=== PATIENT | male | born 1940 | race Caucasian/White ===

== ENCOUNTER 2022-04-08 08:43 | Day surgery (SDC) | payer MEDICARE, OTHER, SELFPAY ==
[2022-04-08] VITALS (16 sets, daily range): BP systolic 126–162; BP diastolic 61–90; PULSE 7–69; RESP 12–16; TEMP 36–36.1; O2SAT 93–99; BMI 26.9
[2022-04-08] MEDS: MIDAZOLAM HCL 1 MG/ML inj IVP (10:27)
[2022-04-08] MEDS: fentaNYL 100 MCG/2 ML inj IVP (10:28)
[2022-04-08] MEDS: LACTATED RINGERS 1000 ML 1,000 ML 100 ML IV (10:29)
[2022-04-08] MEDS: CEFAZOLIN 2 GM INJ IVP (10:50)
[2022-04-08] MEDS: SODIUM CHLORIDE IRRIG SOLUTION 3,000 ML, EPINEPHrine 1 MG IRRIGATION (12:03)
--- NOTE | 2022-04-08 12:49 | PM.ORPRC ---
Procedure Note Date of procedure: 04/08/22 Procedure: PREOPERATIVE DIAGNOSES: 1. Left shoulder rotator cuff [id number] upper border subscapularis and supraspinatus/infraspinatus 2. Left shoulder AC degenerative joint disease, severe 3. Left shoulder long head of biceps tendinopathy 4. Left shoulder subacromial impingement syndrome. POSTOPERATIVE DIAGNOSES: 1. Left shoulder rotator cuff [id number] upper border subscapularis and supraspinatus/infraspinatus 2. Left shoulder AC degenerative joint disease, severe 3. Left shoulder long head of biceps tendinopathy, mild 4. Left shoulder degenerative labral fraying and tearing 5. Left shoulder subacromial impingement syndrome. NAME OF OPERATION: 1. Left shoulder arthroscopic rotator cuff repair (upper border subscap x1, supra/infra tearing) 2. Left shoulder arthroscopic distal clavicle excision 3. Left shoulder arthroscopic extensive glenohumeral debridement 4. Left shoulder arthroscopic bursectomy, subacromial decompression/partial acromioplasty. SURGEON: Irvin Rice MD EDUCATION AND TRAINING COORDINATOR: Cole Mayfield PA-C. Of note, a skilled assistant shift supervisor was critical for this case to aide in patient positioning, suture manipulation, arm positioning, instrument positioning, and closure. ANESTHESIA: General plus preoperative supraclavicular block. EBL: 50 mL IMPLANTS: Arthrex 4.75 mm BioComposite SwiveLock suture anchor (x1-subscap); 5.5 mm BioComposite corkscrew suture anchor (x1) and 5.5 mm BioComposite SwiveLock (x1) COMPLICATIONS: None evident INDICATIONS: The patient is a pleasant, 82-year-old male who has experienced left shoulder pain that has been increasing in recent time. Physical exam and imaging were consistent with a rotator cuff tear. Given their findings, as well as the weakness and pain, and inadequate response to nonoperative management, recommendation was made for surgery. 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 As a child he underwent multiple surgeries on bilateral lower extremities subsequently. His upper extremities are very necessary for his daily life. FINDINGS: Exam under anesthesia revealed stable shoulder with excellent range of motion. The diagnostic arthroscopy revealed grade 2 chondromalacia humeral head with some loose chondral flaps. The Subscapularis tendon was torn from its upper border with retraction. The long head of the biceps tendon was torn in a mild manner on the deep surface of the tendon not at the origin but rather proximally 1 cm distal. The superior rotator cuff tendon was found to be torn full-thickness through the supra/infra regions in a longitudinal manner warranting marginal convergence sutures. There is also some partial-thickness deep surface tearing of the supraspinatus more anteriorly warranting corkscrew suture anchor to help reapproximate that tissue. The labrum was degeneratively frayed in the anterior and superior aspects. No loose bodies were identified within the pouch or subscapularis recess. PROCEDURE: Following a thorough discussion of risks, benefits, and alternatives, consent was obtained and the left shoulder was marked. The patient was brought to the operating room and placed supine on the operating table. Induction of anesthesia was completed after preoperative supraclavicular block was administered in preop holding. Appropriate time out was performed identifying proper patient, site, and procedure. 2 g IV Ancef was administered within 1 hour of incision preoperatively. The left upper extremity was prepped and draped in the appropriate sterile fashion using ChloraPrep prep. This was after the patient was positioned in the beach chair with their head in neutral alignment and all bony prominences well padded. The shoulder was insufflated with 20mL of normal saline via an 18g spinal needle from a posterior approach. An 11 blade skin incision allowed a blunt trochar to be inserted and diagnostic arthroscopy to be performed with the findings as noted above. An anterior portal was established with an outside in technique. This allowed the probe to be inserted and confirm the diagnostic arthroscopic findings. The shaver was then inserted and allowed debridement of the anterior and superior labrum as well as the deep surface of the biceps that was partially torn and finally the humeral head chondral loose flaps. The biceps was probed otherwise found to be stable without significant lift off at the origin. Following this, the upper border subscapularis was repaired after debriding the lesser tuberosity with the shaver and [place] cautery. Subscapularis was captured in horizontal mattress fashion with a fiber tape suture. The tails were brought to a single anchor in the lesser tuberosity with excellent reapproximation of the subscap tendon and good excursion/tension. Thereafter, the subacromial space was entered. Here, a complete bursectomy and partial acromioplasty/subacromial decompression was performed with a combination of radiofrequency ablator, the shaver, and a 5.5 mm bur. Additionally, distal clavicle excision was performed with the bur. 8 mm of distal clavicle was resected based on the width of our bur. Further inspection of the supraspinatus and infraspinatus rotator cuff was performed. [This identified the tear as noted above. The margins of the tear were debrided as they had significant fatty infiltration within the tendinous portion. Following this, a 5.5 mm BioComposite corkscrew suture anchor was placed underneath the supraspinatus tendon more anteriorly as there was approximately 50% lift off on the tendon or more. After passing this anchor, the sutures were passed in horizontal mattress fashion (double loaded) and tied down with good security of this anterior supraspinatus. The longitudinal split between the supra and infra warranted marginal convergence sutures. 2 separate suture tapes were passed and tied with good security of this. The more lateral of the tails was then placed into a SwiveLock suture anchor to help again reapproximated to the greater tuberosity. This was all done following gentle decortication of the greater tuberosity and debridement of the unhealthy tendon edges. Prior to anchor shuttle van driver removal, the eyelet sutures were tugged on for each anchor and found that the anchor had excellent stability within the bone. The shoulder was placed through range of motion and found to be stable. The rotator cuff was re-probed and found to be stable. Instruments were removed. Excess fluid was drained, closure performed with 4-0 Monocryl and Steri-Strips. Dressings were applied. Sling was applied. The patient was awoken from anesthesia and transferred to the PACU in stable condition. A skilled assistant shift supervisor was critical for this case to aid in patient positioning, limb positioning, skill to manipulate arthroscopic instruments and camera, suture management, patient safety, and closure. PLAN: 1. Elbow, forearm, wrist and digit range of motion of operative extremity as tolerated. 2. Encouraged ice. 3. Percocet for pain as needed. 4. Sling at all times except for ROM and showering. 5. Follow up with PA visit in 1-2 weeks for wound check. Initiate physical therapy following that visit for passive range of motion. Initiate active assisted range of motion at 4-6 weeks. May do pendulums now.
--- NOTE | 2022-04-08 13:09 | P.NB_ITS ---
Nerve Block Nerve Block Date Seen: 04/08/22 Type of block requested by surgeon for post-operative analgesia: interscalene Side: left Time out performed: Yes Verification of patient name: Yes Verification of date of : Yes Site marking: site marked Name of person performing procedure: Fan Continuous monitoring Was continuous monitoring of O2 sat, B/P, threat monitoring analyst, recorded every 15 minutes?: Yes Procedure Checklist: sterile prep, needles and gloves Ultrasound guided. Images saved: Yes Medications given in 5ml increments after negative aspiration: Ropivicaine %: 0.5 mL: 20 Needle gauge: 22 Decadron (mg): 10 Precedex (mcg): 25 Patient tolerated procedure well: Yes Block Charges Block Charge (with Pro Fee): Brachial Plexus Use of Ultrasound Machine for Block: Yes- US Guidance/pain block
--- NOTE | 2022-04-08 13:14 | W.ANESCHARGE ---
Anesthesia Charges Start Date/Time Anesthesia Start Date: 04/08/22 Anesthesia Start Time: 10:36 Stop Date/Time Anesthesia Stop Date: 04/08/22 Anesthesia Stop Time: 13:10 Summary Emergency: No Extremes of Age: Over 70-CPT 62581
--- NOTE | 2022-04-08 13:21 | W.ANESCHARGE ---
Anesthesia Charges Start Date/Time Anesthesia Start Date: 04/08/22 Anesthesia Start Time: 10:36 Stop Date/Time Anesthesia Stop Date: 04/08/22 Anesthesia Stop Time: 13:10 Summary Emergency: No Extremes of Age: Over 69-CPT 49115
--- NOTE | 2022-04-08 15:39 | SUR.PREOP ---
TIME?OUT:?1020 PT/RN/MDA?VERIFICATION?OF?SURGICAL?SITE,?PROCEDURE,?AND?CONSENT OBTAINED?PRIOR?TO?INVASIVE?PROCEDURE.
== END 2022-04-08 15:25 | disposition home or self-care (01) ==
PROVIDERS: PCP Family Medicine; Visit Provider Orthopaedic Surgery Sports Medicine
PROC: (CPT 29805; principal; 2022-04-08 10:15)
DX: M75.122 Complete rotator cuff tear or rupture of left shoulder, not specified as traumatic (principal); M19.012 Primary osteoarthritis, left shoulder; M75.22 Bicipital tendinitis, left shoulder; M75.42 Impingement syndrome of left shoulder
CPT/HCPCS: 29827; 29828; 29826; 29823; 29824; 01630; 64415; 76942; 99100; C1713; J0171; J0330; J0690; J1100; J2250; J2405; J2704; J2795; J3010; J7120; L3670

== ENCOUNTER 2022-07-08 14:30 | Outpatient (RCR) | payer MEDICARE, OTHER, SELFPAY ==
--- NOTE | 2022-04-28 14:16 | PT.OPEX ---
PT [place] Outpatient Eval PT [facility] Outpatient Eval Start: 04/27/22 14:02 Freq: Status: Active Protocol: Document 04/28/22 12:32 SEW (Rec: 04/28/22 12:36 SEW [id number]) E-signed By Hodan Obregon DPT Physical Therapy Outpatient Evaluation Insurance Information Recert Due Date 07/27/22 Insurance Name Medicare B Medical Diagnosis s/p L RCR (left shoulder arthroscopic RCR (supra/infra, subscap x3 anchor), SAD, DCE, extensive glenohumeral debridement) Treating Diagnosis left shoulder pain; impaired L shd ROM; glenohumeral joint tightness; UE weakness; impaired posture Referring MD Dr. Rice; Cole Mayfield PA-C Subjective Subjective Pt had injury early this summer where he forcefully pulled back an item (a water gun) from his grandkid's hands while in a swimming pool and felt immediate discomfort in his L arm after doing so. Pain did not subside, and he went in two weeks later. Found to have RC tears and surgery was done on 04/08/[address] Rice. Left RCR of supraspinatus/infraspinatus and subscap tendons with 3 anchors, SAD, DCE and glenohumeral debridement was also done. Pt reports he is recovering well. Hasn't had a pain med in a week. No pain at rest. Sometimes when he moves it wrong he feels some pain. Keeping sling on about 1/2 the time. Was told to take it off maybe about 10x per day. Sleeping ok. Not doing any lifting, helps with all housework. Next doctor appt is 05/22/22. He is right handed. PLOF: no restrictions or problems with L arm ROM, strength. He considers his arms his strong point- pt had polio as a child and subsequent L leg weakness due to this, multiple surgeries prior to the age of 14. He states now he falls about once per month but I know how to fall now. Pt uses walking stick when he goes out of the house. Also has a brace for his left leg. Was doing PT for his balance/gait prior to this shoulder injury and had to stop. He has not had any other shoulder injuries or pain prior to surgery. Pain Comments no pain at rest Date of Last Physician Visit 04/16/22 Date of Next Physician Visit 05/22/22 Date of Surgery (If applicable) 04/08/22 Current Work Status Retired Precautions Treatment Precautions/Contraindications PROM okay; no AAROM until 5-6 weeks post-op (~05/13/22) Therapy Limitations/Systems Review Not Limited Objective Range of Motion PROM: shoulder flexion ~ 100-110 deg shoulder abduction ~ 90 deg shoulder IR 58 deg shoulder ER 50 deg Elbow: flex full; ext full Wrist: WNL's Strength deferred Swelling none Palpation no tenderness Balance & Gait uses walking stick d/t polio L leg weakness Posture Rounded shoulders, slightly elevated Other/Pertinent Objective Moving surgical arm actively while talking, and leaning on it while sitting, pushing off it when standing up. Assessment Assessment/Impression Pt is pleasant 82 yo male who presents s/p L RCR (subscap, infra, supra tears), SAD, DCE and glenohumeral debridement on 04/08/22 following a shoulder injury early this summer. Recovering well post- surgically and exam findings today demonstrate impaired shoulder ROM, UE weakness, abnormal shoulder posture, and mild joint tightness with PROM assessment today. As observed in clinic today, pt is also not following MD restrictions for no AROM of shoulder until 5-6 weeks post- op. He is using sling but about 1/2 the time. Re- iterated and explained importance of maximum protection of shoulder during this critical healing timeframe, with use of his sling, and no AROM, keeping his arm at his side. Pt is 3 weeks post-op tomorrow. Will continue PROM and progression into AAROM/AROM when cleared by MD. He will greatly benefit from skilled PT services to address his limitations and improve overall function in order to return to PLOF. Primary Functional Limitations reaching, lifting, dressing, self-cares, gardening/hobbies Plan of Care Rehabilitation Potential Excellent Physical Therapy Goals Within 8 weeks: 1. Pt will have full AROM of left shoulder equal to opposite side for reaching above head into the cupboard. 2. Pt will be able to reach behind his back to pull his wallet out or pull up his pants with ease. 3. Pt will be able to reach behind head to wash his hair. Within 12 weeks: 4. Pt will be able to lift a plate into the cupboard without difficulty. 5. Pt will be able to carry a grocery bag in L arm. 6. Pt will be able to roll onto and lay on L side without difficulty for sleep hygiene. Coordination/Communication With Referral Source Treatment Plan/Direct Interventions Joint Mobilization,Manual Therapy,Neuromuscular Re-ed, Self-Care/Home Management, Therapeutic Activities, Therapeutic Exercises Frequency/Duration 1-2x weekly for 12 weeks Patient Will Be Discharged From Therapy Completion of LTG(s),Skills Plateau,Independent w/HEP, Independently Progressing Discharge Plan Comments d/c when functional goals are met Evaluation Billing Untimed Code Treatment Minutes 25 Complexity Low Certification Information Initial Certification Date 04/28/22 Ending Certification Date 07/27/22
== END 2022-07-17 12:11 | disposition home or self-care (01) ==
PROVIDERS: PCP Family Medicine; Visit Provider Physician Assistant Surgical
DX: Z98.890 Other specified postprocedural states (principal); Z51.89 Encounter for other specified aftercare
CPT/HCPCS: 97110; 97161; 97535

== ENCOUNTER 2022-07-27 07:57 | Outpatient (CLI) | payer MEDICARE, OTHER, SELFPAY ==
--- NOTE | 2022-07-27 08:15 | CRLHL7_ITS ---
For Patients: As a result of the Century Cures Act, medical imaging exams and procedure reports are released immediately into your electronic medical record. You may view this report before your referring provider. If you have questions, please contact your health care provider. CLINICAL HISTORY: Chronic kidney disease TECHNIQUE: Wright scale and color Doppler images were acquired of the kidneys and urinary bladder. FINDINGS: The right kidney measures 9.9 centimeters left kidney measures 8.9 centimeters renal cortices are maintained. Slight increased echogenicity of the kidneys could represent medical renal disease. No hydronephrosis. Echogenic focus in the left kidney could represent a nonobstructing stone. Bilateral renal cysts measuring up to 3.2 centimeters on the right. Urinary bladder unremarkable IMPRESSION: 1. Mild increase echogenicity of the kidneys could represent medical renal disease. Bilateral renal cysts. Dictated by Bharati Hernandez MD @ 07/27/2022 9:15:35 AM (Electronically Signed)
== END 2022-07-27 07:58 | disposition home or self-care (01) ==
LOC: US 07:57
PROVIDERS: PCP Family Medicine; Visit Provider Internal Medicine Nephrology
DX: N18.31 Chronic kidney disease, stage 3a (principal); N28.1 Cyst of kidney, acquired
CPT/HCPCS: 76775

== ENCOUNTER 2022-11-03 15:08 | Outpatient (CLI) | payer MEDICARE, OTHER, SELFPAY ==
--- NOTE | 2022-11-03 15:30 | MR_ITS ---
[address] [address] Phone:?[phone] Fax:?[phone] Referring Physician Information: Irvin Rice M.D. [id number] [facility] [address] Phone:?[phone] Fax:?[phone] Patient:Meng Marks D.O.B:?1940 Sex:?Male Phone:?[phone] [facility] MRN:?[id number] Exam Date:?11/03/2022 ? EXAM: MRI of the RIGHT SHOULDER, without contrast CLINICAL: Right shoulder pain. Evaluate for rotator cuff tear. COMPARISONS: X-rays dated 10/27/2022. TECHNICAL: MRI sequences of the right shoulder: Axials: PD, PDFS Coronals: PD, T2FS Sagittals: PDFS, T2 SEDATION: None. CONTRAST: None. FINDINGS: Rotator cuff: Supraspinatus/Infraspinatus: There is mild to moderate tendinosis of the distal supraspinatus and infraspinatus tendons. Mild focal thin linear partial interstitial tearing of the distal supraspinatus tendon on coronal series 4 image 12 involves approximately 40% of the tendon thickness. No significant fatty atrophy of the muscle bellies. Teres minor: No tendinosis, tear or atrophy. Subscapularis: Moderate thickening/tendinosis without significant tendon tear. No significant fatty atrophy of the muscle belly. Bursae: Subacromial-subdeltoid: Mild to moderate bursitis with internal synovitis. Subcoracoid: No significant bursal fluid. Coracoacromial arch: Acromion morphology: Type II. No os acromiale. Acromiohumeral space: Mildly narrowed. Coracohumeral space: Within normal limits. Biceps tendon, long head: Mild tendinosis of the intra-articular tendon with moderate tendinosis of the extra-articular tendon. No significant tendon tear or displacement. Glenohumeral joint: Physiologic volume of joint fluid. Articular cartilage: Grade 2-3 chondral thinning is seen to involve the glenoid with high-grade chondral thinning seen to involve the inferomedial humeral head. Capsule: No convincing evidence of capsular thickening or injury. Labrum: Mild scattered degenerative changes. No perilabral cyst identified. Bones: No suspicious marrow signal alteration, fracture or dislocation. Acromioclavicular joint: Mild to moderate changes of arthrosis. No AC joint injury/widening. IMPRESSION: 1. Mild to moderate tendinosis of the distal supraspinatus and infraspinatus tendons with mild partial interstitial insertional tearing involving the distal supraspinatus tendon. No full-thickness or retracted rotator cuff tendon tear. 2. Moderate thickening/tendinosis of the distal subscapularis tendon. 3. Mild to moderate subacromial/subdeltoid bursitis. 4. Mild to moderate tendinosis of the long head biceps tendon. 5. Grade 2-3 chondral thinning involving the glenoid with high-grade chondral thinning involving the inferomedial humeral head. 6. Mild to moderate AC joint arthrosis. JCZ Electronically signed on 11/04/2022 7:45:00 AM by Edouard Trinidad D.O.
== END 2022-11-03 15:09 | disposition home or self-care (01) ==
LOC: MRI 15:10
PROVIDERS: PCP Family Medicine; Visit Provider Orthopaedic Surgery Sports Medicine
DX: M25.511 Pain in right shoulder (principal); M75.101 Unspecified rotator cuff tear or rupture of right shoulder, not specified as traumatic; M75.51 Bursitis of right shoulder; M19.011 Primary osteoarthritis, right shoulder
CPT/HCPCS: 73221

== ENCOUNTER 2022-12-07 07:15 | Day surgery (SDC) | payer MEDICARE, OTHER, SELFPAY ==
[2022-12-07] VITALS (27 sets, daily range): BP systolic 115–168; BP diastolic 61–92; PULSE 60–70; RESP 18–20; TEMP 36–36.5; O2SAT 88–97; BMI 26.4
[2022-12-07] MEDS: LACTATED RINGERS 1000 ML 1,000 ML 100 ML IV ×2 (08:15→09:16)
[2022-12-07] MEDS: SODIUM CHLORIDE 0.9 % (FLUSH) 10 ML SYRINGE IVF (08:15)
--- NOTE | 2022-12-07 08:52 | SUR.PREOP ---
TIME?OUT:?0852 right shoulder PT/RN/MDA?VERIFICATION?OF?SURGICAL?SITE,?PROCEDURE,?AND?CONSENT OBTAINED?PRIOR?TO?INVASIVE?PROCEDURE.
[2022-12-07] MEDS: MIDAZOLAM HCL 1 MG/ML inj IVP (08:55)
[2022-12-07] MEDS: fentaNYL 100 MCG/2 ML inj IVP (08:55)
[2022-12-07] MEDS: CEFAZOLIN 2 GM in 0.9 % SODIUM CHLORIDE Mini-bag 100 ML IVPB (09:14)
--- NOTE | 2022-12-07 09:20 | P.NB_ITS ---
Nerve Block Nerve Block Time Seen by Provider: 08:55 Date Seen: 12/07/22 Type of block requested by surgeon for post-operative analgesia: supraclavicular Side: right Time out performed: Yes Verification of patient name: Yes Verification of date of : Yes Site marking: site marked Name of person performing procedure: Fan Continuous monitoring Was continuous monitoring of O2 sat, B/P, cardiac cath lab manager, recorded every 15 minutes?: Yes Procedure Checklist: sterile prep, needles and gloves Ultrasound guided. Images saved: Yes Medications given in 5ml increments after negative aspiration: Ropivicaine %: 0.5 mL: 20 Needle gauge: 22 Decadron (mg): 10 Precedex (mcg): 25 Patient tolerated procedure well: Yes Block Charges Block Charge (with Pro Fee): Brachial Plexus Use of Ultrasound Machine for Block: Yes- US Guidance/pain block
--- NOTE | 2022-12-07 09:20 | W.ANESCHARGE ---
Anesthesia Charges Start Date/Time Anesthesia Start Date: 12/07/22 Anesthesia Start Time: 09:00 Stop Date/Time Anesthesia Stop Date: 12/07/22 Anesthesia Stop Time: 11:09 Summary Extremes of Age - Over 70 or under 1: MDA
[2022-12-07] MEDS: EPINEPHrine 1 MG in SODIUM CHLORIDE IRRIG SOLUTION 3,000 ML 9003 MG IRRIGATION ×5 (09:33→10:30)
--- NOTE | 2022-12-07 10:55 | PM.ORPRC ---
Procedure Note Date of procedure: 12/07/22 Procedure: PREOPERATIVE DIAGNOSES: 1. Right shoulder rotator cuff tear --partial-thickness upper subscapularis and supraspinatus 2. Right shoulder AC degenerative joint disease, primary, moderate-severe 3. Right shoulder low-grade partial-thickness long head biceps tendon tearing 4. Right shoulder labral tearing 5. Right shoulder subacromial impingement syndrome. POSTOPERATIVE DIAGNOSES: 1. Right shoulder rotator cuff tear --high-grade partial-thickness upper subscapularis and supraspinatus 2. Right shoulder AC degenerative joint disease, primary, moderate-severe 3. Right shoulder moderate-grade partial-thickness long head biceps tendon tearing 4. Right shoulder labral tearing, diffuse 5. Right shoulder subacromial impingement syndrome. NAME OF OPERATION: 1. Right shoulder arthroscopic rotator cuff repair (x1 anchor subscap; x2 anchor supra). 2. Right shoulder arthroscopic distal clavicle excision 3. Right shoulder arthroscopic extensive glenohumeral debridement 4. Right shoulder arthroscopic bursectomy, subacromial decompression/partial acromioplasty. SURGEON: Irvin Rice MD WIRE COILER MACHINE OPERATOR: Cole Mayfield PA-C. Of note, a skilled assistant counsel was critical for this case to aide in patient positioning, suture manipulation, arm positioning, instrument positioning, and closure. ANESTHESIA: General plus preoperative supraclavicular block. EBL: Less than 50 mL IMPLANTS: Arthrex 4.75 mm BioComposite SwiveLock suture anchor (x1); 2.6 mm FiberTak RC (x1); 5.5 mm BioComposite SwiveLock suture anchor (x1) COMPLICATIONS: None evident INDICATIONS: The patient is a pleasant, 82-year-old male who has experienced right shoulder pain that has been increasing in recent time. Physical exam and imaging were consistent with a rotator cuff tear. Given their findings, as well as the weakness and pain, and inadequate response to nonoperative management, recommendation was made for surgery. FINDINGS: Exam under anesthesia revealed stable shoulder with excellent range of motion. The diagnostic arthroscopy revealed grade 4 chondral defect anterior superior humeral head adjacent to the biceps groove and supraspinatus insertion. The Subscapularis tendon was torn from its upper border with moderate retraction. The long head of the biceps tendon was torn in the low to moderate grade manner on the humeral side near the level of the biceps groove. The superior rotator cuff tendon was found to be torn and high-grade partial-thickness manner through the anterior to midportion of the supraspinatus. The labrum was degenerative frayed and torn near circumferentially but especially anteriorly, superiorly, and posteriorly. No loose bodies were identified within the pouch or subscapularis recess. PROCEDURE: Following a thorough discussion of risks, benefits, and alternatives, consent was obtained and the right shoulder was marked. The patient was brought to the operating room and placed supine on the operating table. Induction of anesthesia was completed after preoperative supraclavicular block was administered in preop holding. Appropriate time out was performed identifying proper patient, site, and procedure. 2 g IV Ancef was administered within 1 hour of incision preoperatively. The right upper extremity was prepped and draped in the appropriate sterile fashion using ChloraPrep prep. This was after the patient was positioned in the beach chair with their head in neutral alignment and all bony prominences well padded. The shoulder was insufflated with 20mL of normal saline via an 18g spinal needle from a posterior approach. An 11 blade skin incision allowed a blunt trochar to be inserted and diagnostic arthroscopy to be performed with the findings as noted above. An anterior portal was established with an outside in technique. This allowed the probe to be inserted and confirm the diagnostic arthroscopic findings. The shaver was then inserted and allowed debridement of the anterior, posterior, and superior labrum. Additionally, the long head of biceps tendon was debrided on the partial-thickness tearing adjacent to the bicipital groove. Finally, the humeral head chondral tissue was debrided adjacent to the grade 4 chondromalacia of the loose chondral flaps. The remaining tendon was intact and showed no splitting or extension of its tearing. Following this, the upper border subscapularis was repaired after debriding the lesser tuberosity with the shaver and [place] cautery. Subscapularis was captured in horizontal mattress fashion with a fiber tape suture. The tails were brought to a single anchor in the lesser tuberosity with excellent reapproximation of the subscap tendon and good excursion/tension. Thereafter, the subacromial space was entered. Here, a complete bursectomy and partial acromioplasty/subacromial decompression was performed with a combination of radiofrequency ablator, the shaver, and a 5.5 mm bur. Additionally, distal clavicle excision was performed with the bur. 8 mm of distal clavicle was resected based on the with of our bur. Further inspection of the supraspinatus and infraspinatus rotator cuff was performed. This identified the tear as noted above. The margins of the tear were debrided, and the greater tuberosity was debrided with a combination of the [place]ollo cautery, shaver, and bur on reverse setting. After gentle decortication, single FiberTak RC anchor was placed after debriding the tear with a combination of liberator elevator and torpedo shaver. The greater tuberosity was prepared as well. The suture tapes were passed as was the extra suture in the anchor. These were brought to a single anchor further laterally with excellent reapproximation and securing of the rotator cuff. Prior to anchor milk delivery driver removal, the eyelet sutures were tugged on for each anchor and found that the anchor had excellent stability within the bone. The shoulder was placed through range of motion and found to be stable. The rotator cuff was re-probed and found to be stable. Instruments were removed. Excess fluid was drained, closure performed with 4-0 Monocryl and Steri-Strips. Dressings were applied. Sling was applied. The patient was awoken from anesthesia and transferred to the PACU in stable condition. A skilled assistant counsel was critical for this case to aid in patient positioning, limb positioning, skill to manipulate arthroscopic instruments and camera, suture management, patient safety, and closure. PLAN: 1. Elbow, forearm, wrist and digit range of motion as tolerated. 2. Encouraged ice. 3. Percocet for pain as needed. 4. Sling at all times except for ROM and showering. 5. Follow up with PA visit in 1-2 weeks for wound check. Initiate physical therapy following that visit for passive range of motion. Initiate active assisted range of motion at 3 weeks. May do pendulums now.
--- NOTE | 2022-12-07 11:44 | W.ANESCHARGE ---
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
--- NOTE | 2022-12-07 13:26 | SUR.PHASEII ---
iv removed, intact
== END 2022-12-07 13:28 | disposition home or self-care (01) ==
PROVIDERS: PCP Family Medicine; Visit Provider Orthopaedic Surgery Sports Medicine
PROC: (CPT 29805; principal; 2022-12-07 09:30)
DX: M75.111 Incomplete rotator cuff tear or rupture of right shoulder, not specified as traumatic (principal); M19.011 Primary osteoarthritis, right shoulder; S46.111A Strain of muscle, fascia and tendon of long head of biceps, right arm, initial encounter; S43.491A Other sprain of right shoulder joint, initial encounter; M75.41 Impingement syndrome of right shoulder
CPT/HCPCS: 29827; 29826; 29823; 29824; 1630; 64415; 76942; 82962; 99100; C1713; J0171; J0330; J0690; J1100; J2250; J2405; J2704; J2795; J3010; J7120; L3670

== ENCOUNTER 2023-03-19 10:15 | Outpatient (RCR) | payer MEDICARE, OTHER, SELFPAY ==
--- NOTE | 2022-12-29 16:25 | PT.OPEX ---
[facility] [place] Outpatient Eval PT [facility] Outpatient Eval Start: 12/29/22 16:03 Freq: Status: Active Protocol: Document 12/29/22 16:04 NOAH (Rec: 12/29/22 16:18 NOAH [id number]) E-signed By Phuong Rivera DPT Physical Therapy Outpatient Evaluation Insurance Information Recert Due Date 03/29/23 Insurance Name Medicare B,[employer] Medical Diagnosis R RCR, SAD, DCE 12/07/22 Treating Diagnosis s/p R RCR/SAD/DCE 12/07 with R shoulder pain, impaired R shoulder ROM, impaired mobility/strength R shoulder/ UE, impaired functional mobility R shoulder currently restricted with R UE sling Subjective Subjective Patient reports having R RCR surgery 12/07. States he has been using his sling about half the time. Initially after surgery he was using pain meds regularly but he has been able to wean back, now only using pain meds on occasion before bed/during the night. Hasn't been needing to ice. States he has been getting back to the pool, letting his arm float, getting some movement in the water. He is going to the pool once a day, 5 days/week. He is also doing R shoulder pendulums. He is R handed. States he is using his R hand for eating with the sling on. Pain range 0-3/10. Reports having L RCR last year. Current Work Status Retired Assessment Assessment/Impression Patient is an 82 year old male s/p R RCR/SAD/DCE 12/07 with R shoulder pain, impaired R shoulder ROM, impaired mobility/strength R shoulder/ UE, impaired functional mobility R shoulder currently restricted with R UE sling. Pain range 0-3/10. Patient using tylenol prn, occasional pain meds before bed or during the night. Hasn't been needing ice lately. He is wearing the sling about half the time. Reviewed current restrictions/precautions s/p R RCR surgery. Reviewed elbow/ wrist/hand ROM and R shoulder codmans exercises. Performed supine PROM this session, tolerated well, minimal to no pain reported. R shoulder PROM: flex 120 degrees, abd 100 degrees, IR 50 degrees, ER 20 degrees. Recommended patient use ice after PT session today. Recheck in PT later this week. Patient would benefit from skilled PT for pain/sx management, improved R shoulder ROM, improved R shoulder mobility/ strength, return to functional use of R shoulder/UE, and establishment of HEP. Plan of Care Rehabilitation Potential Good Physical Therapy Goals 1. Decrease/maintain R shoulder pain at less than/ equal to 3/10 with daily activities and with the progression of PT activities over the next 6-8 weeks. 2. Improve R shoulder PROM over the next 4-6 weeks to prepare for return to functional use of R shoulder/UE. 3. Improve R shoulder AROM over the next 8-10 weeks for return to functional use of R shoulder/ UE with daily/household activities. 4. Improve R shoulder/UE strength over the next 10-12 weeks for return to full functional use of R shoulder/UE with daily/ household/workout activities. 5. Patient will be I with HEP within 12 weeks for progression toward above goals, ongoing self management of pain/sx, ongoing self improvements in ROM/strength/function, and for return to full functional use of R shoulder/UE with daily/ household/workout activities. Coordination/Communication With Referral Source Treatment Plan/Direct Interventions Manual Therapy,Therapeutic Exercises Frequency/Duration 1-2x/week Patient Will Be Discharged From Therapy Completion of LTG(s),Skills Plateau,Independent w/HEP, Independently Progressing Evaluation Billing Untimed Code Treatment Minutes 20 Complexity Moderate Certification Information Initial Certification Date 12/29/22 Ending Certification Date 03/29/23 Provider Signature Shows Agreement With POC & Medical Necessity Physician Signature & Date Requested Please Sign/Date Here Physician Comment/Change : Physician NPI Number #
== END 2023-03-19 13:05 | disposition home or self-care (01) ==
PROVIDERS: PCP Family Medicine; Visit Provider Orthopaedic Surgery Sports Medicine
DX: Z98.890 Other specified postprocedural states (principal); Z51.89 Encounter for other specified aftercare
CPT/HCPCS: 97110; 97162

== ENCOUNTER 2023-05-04 15:15 | Outpatient (RCR) | payer MEDICARE, OTHER, SELFPAY | END 2023-05-05 08:01 | disposition home or self-care (01) | PROVIDERS: PCP Family Medicine; Visit Provider Family Medicine | DX: R26.81 Unsteadiness on feet (principal); Z86.12 Personal history of poliomyelitis; R26.9 Unspecified abnormalities of gait and mobility; M62.81 Muscle weakness (generalized); Z51.89 Encounter for other specified aftercare | CPT/HCPCS: 97110; 97112; 97162 ==

== ENCOUNTER 2023-08-20 17:02 | Outpatient (CLI) | payer MEDICARE, OTHER, SELFPAY | END 2023-08-20 17:03 | disposition home or self-care (01) | LOC: AMB 08-23 10:29 | PROVIDERS: PCP Family Medicine; Visit Provider Family Medicine | DX: R55 Syncope and collapse (principal) | CPT/HCPCS: A0425; A0427 ==

== ENCOUNTER 2023-08-20 17:42 | Emergency (ER) | payer MEDICARE, OTHER, SELFPAY ==
[2023-08-20] VITALS (17 sets, daily range): BP systolic 126–153; BP diastolic 71–80; PULSE 69–84; RESP 18; TEMP 36.3; O2SAT 95–99; BMI 25.0
--- NOTE | 2023-08-20 18:16 | ED.GENADULT ---
HPI - General Adult General Chief complaint: Syncope/Fainted Stated complaint: Syncope Time Seen by Provider: 08/20/23 18:10 History of Present Illness HPI narrative: had a covid vaccine at 1000 today. laid for a nap and woke and 1700, became dizzy and light headed , assisted to floor. pt did have loss of bladder. upon arrival to ED, pt alert and oriented 83-year-old man presenting to the emergency department after apparent syncopal event. Presents emergency department but hour and half after apparent syncopal event that spouse describes as ?seizure?. Does not have a known history of seizure disorder nor 1 in his family although maybe an aunt though that is in question. No history of recurrent headaches or visual changes beyond his retinopathy. Does have a history of cardiovascular disease. Had received COVID injection mid morning. Subsequently was running errands. 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 Want to put his head down on his desk and thinks he may have fallen asleep. Got up and was unsteady spouse observe this and he was directed to a bench where he sat down. He noted some soft be rather diaphoretic around this time and had understandable concerns of out of potential cardiovascular issue. Does have a history of a couple of stents and had been mentioned by cardiology at last visit that might need addressing at some point in the not too distant future. Spouse says then he laid back the bench and then went stiff. Maybe lasted about 60 seconds. By the time EMS arrived who was called at this point he was mostly mentally clear. Did however in this event lose control of his bladder. Related Data Home Medications Medication Instructions Recorded Confirmed aspirin 81 mg capsule 81 mg PO DAILY 04/07/22 04/02/23 carvedilol 6.25 mg tablet 6.25 mg PO BID 04/07/22 04/02/23 clopidogrel 75 mg tablet 75 mg PO DAILY 04/07/22 04/02/23 cyanocobalamin (vitamin B-12) 1,000 mcg PO DAILY 04/07/22 04/02/23 1,000 mcg capsule ezetimibe 10 mg tablet 10 mg PO DAILY 04/07/22 04/02/23 finasteride 5 mg tablet 5 mg PO DAILY 04/07/22 04/02/23 glipizide 5 mg tablet 5 mg PO BID 04/07/22 04/02/23 lancets (Accu-Chek Fastclix Lancet 04/07/22 01/22/23 Drum) lisinopril 10 mg tablet 10 mg PO DAILY 04/07/22 04/02/23 metformin 1,000 mg tablet 500 mg PO BIDWMEAL 04/07/22 04/02/23 multivitamin 1 tab PO DAILY 04/07/22 04/02/23 rosuvastatin 5 mg tablet 5 mg PO .mon/thurs 04/07/22 04/02/23 tamsulosin 0.4 mg capsule 0.4 mg PO DAILY 04/07/22 04/02/23 vit C 250 mg-E 90 mg-zinc 40 1 tab PO QAM AND QPM 05/22/22 04/02/23 mg-copper 1 lm-srkgud-mgfcal chew tablet (PreserVision AREDS-2) canagliflozin 100 mg tablet 100 mg PO QAM 04/02/23 04/02/23 (Invokana) Allergies Allergy/AdvReac Type Severity Reaction Status Date / Time Gsssgme-OXM-QgA Reductase Allergy Intermediate Muscle Pain Verified 04/02/23 09:06 Inhibitor Review of Systems Status of ROS: Reports: 6 or more systems reviewed and unremarkable except as noted in History and below [facility] Coronary artery disease involving [place] coronary artery without angina pectoris ?I25.10 - Atherosclerotic heart disease of [place] coronary artery without angina pectoris (ICD-10) B12 deficiency ?E53.8 - Deficiency of other specified B group vitamins (ICD-10) BPH (benign prostatic hyperplasia) ?N40.0 - Benign prostatic hyperplasia without lower urinary tract symptoms (ICD-10) Hyperlipemia ?E78.5 - Hyperlipidemia, unspecified (ICD-10) Thyroid nodule ?E04.1 - Nontoxic single thyroid nodule (ICD-10) Diabetes mellitus type 2, controlled ?E11.9 - Type 2 diabetes mellitus without complications (ICD-10) Gout ?M10.9 - Gout, unspecified (ICD-10) GERD (gastroesophageal reflux disease) ?K21.9 - Gastro-esophageal reflux disease without esophagitis (ICD-10) Migraine ?G43.909 - Migraine, unspecified, not intractable, without status migrainosus (ICD-10) TERRI (obstructive sleep apnea) ?G47.33 - Obstructive sleep apnea (adult) (pediatric) (ICD-10) Personal history of poliomyelitis ?Z86.12 - Personal history of poliomyelitis (ICD-10) Non-ST elevation myocardial infarction (NSTEMI) ?I21.4 - Non-ST elevation (NSTEMI) myocardial infarction (ICD-10) Surgical History Status post arthroscopy of right shoulder (12/07/22) ?Z98.890 - Other specified postprocedural states (ICD-10) Hx of arthroscopy of left knee ?Z98.890 - Other specified postprocedural states (ICD-10) History of surgery ?Z98.890 - Other specified postprocedural states (ICD-10) History of back surgery ?Z98.890 - Other specified postprocedural states (ICD-10) Status post left rotator cuff repair (04/08/22) ?Z98.890 - Other specified postprocedural states (ICD-10) Social History Smoking Status: Former smoker What tobacco products do you use: cigarettes Smoking quit date/years: >15 years ago Do you use any of these nicotine containing products: None How often do you have a drink containing alcohol: 4 or more times a week Alcohol type: hard liquor How many standard drinks containing alcohol do you have on a typical day: 1 or 2 How often do you have six or more drinks on one occasion: Never AUDIT-C Alcohol total score: 4 Non-prescribed substance use: denies use Caffeine: Yes Exam Narrative: Exam Narrative: Pleasant. NAD. Breathing easily. GCS of 15. Quite alert easily conversing. Cranial nerves 2-12 intact. There is no nystagmus evident. Pupils are 3 mm and equal and appropriately reactive and accommodating. Head is atraumatic. Oropharynx is without evidence of injury. 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 No evidence of trauma on extremities. Lungs are clear. Back is atraumatic. Heart in a regular rate and rhythm. A bit distant. Abdomen is soft and nontender. Protuberant. Lower extremities are without edema. Const: Vital Signs, click to edit/add: Vital Signs - 24 hr 08/20/23 17:53 08/20/23 18:00 08/20/23 18:15 Temperature 97.3 F L Pulse Rate 70 72 Pulse Rate [Right Pulse Oximeter] 69 Respiratory Rate 18 Blood Pressure Blood Pressure [Ri ght Upper Arm] 126/75 Pulse Oximetry 96 98 97 Oxygen Delivery Me thod Room Air 08/20/23 18:30 08/20/23 18:45 08/20/23 18:52 Temperature Pulse Rate 70 Pulse Rate [Right Pulse Oximeter] Respiratory Rate Blood Pressure 135/77 Blood Pressure [Ri ght Upper Arm] Pulse Oximetry 97 95 Oxygen Delivery Me thod 08/20/23 18:55 08/20/23 19:00 08/20/23 19:02 Temperature Pulse Rate 73 71 75 Pulse Rate [Right Pulse Oximeter] Respiratory Rate Blood Pressure 132/71 Blood Pressure [Ri ght Upper Arm] Pulse Oximetry 98 97 97 Oxygen Delivery Me thod 08/20/23 19:18 08/20/23 19:21 08/20/23 19:30 Temperature Pulse Rate 76 78 75 Pulse Rate [Right Pulse Oximeter] Respiratory Rate Blood Pressure 151/80 H Blood Pressure [Ri ght Upper Arm] Pulse Oximetry 97 97 99 Oxygen Delivery Me thod 08/20/23 19:42 08/20/23 19:45 08/20/23 20:00 Temperature Pulse Rate 79 80 84 Pulse Rate [Right Pulse Oximeter] Respiratory Rate Blood Pressure 135/77 Blood Pressure [Ri ght Upper Arm] Pulse Oximetry 98 98 98 Oxygen Delivery Me thod 08/20/23 20:02 Temperature Pulse Rate 81 Pulse Rate [Right Pulse Oximeter] Respiratory Rate Blood Pressure 153/79 H Blood Pressure [Ri ght Upper Arm] Pulse Oximetry 99 Oxygen Delivery Me thod Documenting provider has reviewed patient's vital signs: yes Course Vital Signs Vital signs: Initial Vital Signs Temperature 97.3 F L 08/20/23 17:53 Temperature Source Temporal Artery Scan 08/20/23 17:53 Pulse Rate 69 08/20/23 17:53 Respiratory Rate 18 08/20/23 17:53 Blood Pressure 126/75 08/20/23 17:53 Blood Pressure Mean 92 08/20/23 17:53 Blood Pressure Position Sitting 08/20/23 17:53 Pulse Oximetry 96 08/20/23 17:53 Oxygen Delivery Method Room Air 08/20/23 17:53 Vital Signs Temperature 97.3 F L 08/20/23 17:53 Pulse Rate 69 08/20/23 17:53 Respiratory Rate 18 08/20/23 17:53 Blood Pressure 126/75 08/20/23 17:53 Pulse Oximetry 96 08/20/23 17:53 Oxygen Delivery Method Room Air 08/20/23 17:53 Temperature 97.3 F L 08/20/23 17:53 Pulse Rate 82 08/20/23 20:03 Respiratory Rate 18 08/20/23 17:53 Blood Pressure 153/79 H 08/20/23 20:02 Pulse Oximetry 99 08/20/23 20:03 Oxygen Delivery Method Room Air 08/20/23 17:53 Medications Administered Medications: Discontinued Medications Generic Name Dose Route Start Last Admin Trade Name Freq PRN Reason Stop Dose Admin Sodium Chloride 1,000 mls @ 1,000 mls/hr 08/20/23 18:45 08/20/23 20:17 0.9 % Sodium Chloride 1000 Ml IV 08/20/23 19:44 Infused .Q1H ONE Infusion Medical Decision Making MDM Narrative Medical decision making narrative: This really does seem to have been a syncopal event possibly brought on by vaccine stress or other, vasovagal event. Would monitor on hall monitor though also for arrhythmia. Given history certainly reasonable to look for ischemic cardiovascular event. I think new onset seizure unlikely at this point in life and in absence of other prodrome. Does have on review of records, history of presyncope and vertiginous symptoms. Not demonstrating vertigo here now. Pulmonary embolus? No chest pain or shortness of breath. Look for evidence of infection. Unlikely cerebrovascular event other than possibly hypoperfusion. Can certainly look for bleed at minimum. Labs are reassuring other than noted later 2-5 white cells in urinalysis but without nitrite or leukocyte esterase. No events on hall monitor. Will proceed with CT head given family concerns. Reviewed by me I do not see any acute abnormality. Radiology over-read as below TECHNIQUE: Head CT without contrast. COMPARISON: Head CT June 2021. FINDINGS: Periventricular areas of low attenuation, likely due to chronic small vessel ischemic changes. Generalized volume loss. Atherosclerosis. No intracranial hemorrhage. No discrete mass or mass effect. There is no midline shift. The basilar cisterns are patent. No hydrocephalus. The le-white matter interface is otherwise preserved. No acute osseous abnormality. No extracalvarial soft tissue abnormality. The mastoid air cells are clear. The paranasal sinuses are well-aerated. The visualized portions of the orbits and globes are unremarkable. IMPRESSION: No acute intracranial process per unenhanced head CT. Repeat troponins are negative. Was given a L of normal saline. Otherwise improved. See patient discharge plan Lab Data Lab results reviewed: Yes I reviewed the patient's lab results Labs: Lab Results 08/20/23 08/20/23 08/20/23 Range/Units 19:05 20:17 20:18 WBC 6.38 (4.50-11.00) K/uL RBC 3.58 L (4.30-5.90) m/uL Hgb 10.8 L (13.5-17.5) gm/dL Hct 34.1 L (37.0-53.0) % MCV 95 (80-100) fL MCH 30 (26-34) pg MCHC 32 (32-36) gm/dL RDW Coeff of [place]a 14.4 (11.5-15.5) % Plt Count 181 (140-440) K/uL Neut % (Auto) 74.7 H (42.0-72.0) % Lymph % (Auto) 12.5 L (20-44) % Howell % (Auto) 9.6 (0.0-11.0) % Eos % (Auto) 2.4 (0.0-7.0) % Baso % (Auto) 0.3 (0.0-3.0) % Neut # (Auto) 4.80 (1.7-7.0) K/uL Lymph # (Auto) 0.80 L (0.90-2.90) K/uL Howell # (Auto) 0.60 (0.00-0.90) K/UL Eos # (Auto) 0.15 (0.00-0.50) K/uL Baso # (Auto) 0.02 (0.00-0.30) K/uL Abs Immat Gran (auto) 0.03 (0.00-0.30) K/uL Imm/Tot Granulo (auto) 0.5 % D-Dimer Quant (PE/DVT) 0.49 (0.00-0.50) ug/ml Sodium 138 (135-149) mmol/L Potassium 4.0 (3.6-5.1) mmol/L Chloride 108 (96-114) mmol/L Carbon Dioxide 18 L (20-32) mmol/L Anion Gap 12 (7-15) mEq/L BUN 28 (7-30) mg/dL Creatinine 1.4 (0.5-1.5) mg/dL Estimated Creat Clear 35.44 Estimated GFR 50 ml/min Glucose 118 H (60-115) mg/dL Calcium 9.1 (8.4-10.6) mg/dL Magnesium 2.5 (1.5-2.6) mg/dL Total Bilirubin 0.7 (0.1-1.5) mg/dL Direct Bilirubin 0.0 (0.0-0.5) mg/dL AST 25 (12-35) U/L ALT 22 (4-50) U/L Alkaline Phosphatase 59 (40-150) U/L Troponin I < 0.01 L (0.01-0.04) ng/mL C-Reactive Protein < 0.5 L (0.5-1.0) mg/dL NT-Pro-B Natriuret Pep 148 pg/mL Total Protein 6.7 (6.0-8.3) g/dL Albumin 4.3 (3.3-5.0) g/dL Urine Color Yellow (Yellow) Urine Appearance Clear (Clear) Urine pH 5.5 (5.0-8.5) Ur Specific Craig 1.015 (1.000-1.030) Urine Protein Negative (Negative) Urine Glucose (UA) 2+ A (Negative) Urine Ketones Trace A (Negative) Urine Blood Trace-intact A (Negative) Urine Nitrite Negative (Negative) Urine Bilirubin Negative (Negative) Urine Urobilinogen 0.2 (0.2-1.0) Ur Leukocyte Esterase Negative (Negative) Urine RBC 0-2 (0-2) Urine WBC 2-5 (0-5) Ur Squamous Epith Cells Few (None-Few) Urine Bacteria Few A (None) Fine Granular Casts Few A (None) Ethyl Alcohol < 0.01 L (0.01-0.03) % POC Troponin I 0.00 L 0.00 L (0.01-0.04) ng/ml ECG Data Attestation: I personally reviewed and interpreted this ECG as follows: (Normal sinus rhythm. Some baseline irritability. Somewhat low voltage. Rate of 81.) Discharge Plan Discharge Clinical Impression: Syncope Patient Disposition: Home w/ Parent or Adult Condition: Improved Additional Instructions: I do think what happened here was more likely a vasovagal event. Does not sound as though you had a seizure. I am reassured by the findings in your heart evaluation. I understand that your findings were subtle in the past. I would encourage you to touch base with your primary care provider in see if they would like to do further workup based on experience here today. Perhaps a call/check-in to Cardiology is warranted as well. Of course return for repeat experience, more shortness of breath or sensations of chest pain or pressure particularly that associated with diaphoresis as he described or worse lightheadedness. Focus on hydration; keep your vascular volume up. Activity Level: No Restrictions Discharge Diet: Regular Prescriptions: No Action PreserVision AREDS-2 250-90-40-1 mg tablet,chewable 1 tab PO QAM AND QPM Invokana 100 mg tablet 100 mg PO QAM aspirin 81 mg capsule 81 mg PO DAILY carvedilol 6.25 mg tablet 6.25 mg PO BID Rx Instructions: must administer with a meal/food clopidogrel 75 mg tablet 75 mg PO DAILY cyanocobalamin (vitamin B-12) 1,000 mcg capsule 1,000 mcg PO DAILY ezetimibe 10 mg tablet 10 mg PO DAILY finasteride 5 mg tablet 5 mg PO DAILY glipizide 5 mg tablet 5 mg PO BID (DME) lancets [Accu-Chek Fastclix Lancet Drum] Misc See Rx Instructions .Route Rx Instructions: As directed lisinopril 10 mg tablet 10 mg PO DAILY metformin 1,000 mg tablet 500 mg PO BIDWMEAL multivitamin Tablet 1 tab PO DAILY rosuvastatin 5 mg tablet 5 mg PO .mon/thurs tamsulosin 0.4 mg capsule 0.4 mg PO DAILY Follow Up/Referrals: Samia Burger MD [Primary Care Provider] - Stand Alone Forms: [employer] Info Instructions
--- NOTE | 2023-08-20 18:45 | CRLHL7_ITS ---
For Patients: As a result of the Century Cures Act, medical imaging exams and procedure reports are released immediately into your electronic medical record. You may view this report before your referring provider. If you have questions, please contact your health care provider. INDICATION: Syncope. TECHNIQUE: Head CT without contrast. COMPARISON: Head CT June 2021. FINDINGS: Periventricular areas of low attenuation, likely due to chronic small vessel ischemic changes. Generalized volume loss. Atherosclerosis. No intracranial hemorrhage. No discrete mass or mass effect. There is no midline shift. The basilar cisterns are patent. No hydrocephalus. The le-white matter interface is otherwise preserved. No acute osseous abnormality. No extracalvarial soft tissue abnormality. The mastoid air cells are clear. The paranasal sinuses are well-aerated. The visualized portions of the orbits and globes are unremarkable. IMPRESSION: No acute intracranial process per unenhanced head CT. Please note that all CT scans at this facility use dose modulation, iterative reconstruction, and/or weight-based dosing when appropriate to reduce radiation dose to as low as reasonably achievable. Dictated by Dillon Orellana MD @ 08/20/2023 7:39:59 PM (Electronically Signed)
[2023-08-20] MEDS: 0.9 % SODIUM CHLORIDE 1000 ml 1,000 ML IV (19:02)
[2023-08-20 19:36] LABS: Basophils Absolute Auto 0.02 K/uL (0.00-0.30); Basophils Percent Auto 0.3 % (0.0-3.0); Eosinophils Absolute Auto 0.15 K/uL (0.00-0.50); Eosinophils Percent Auto 2.4 % (0.0-7.0); Hematocrit 34.1 % (37.0-53.0); Hemoglobin* 10.8 gm/dL (13.5-17.5); Immature Granulocytes Abs Auto 0.03 K/uL (0.00-0.30); Immature Granulocytes Pct Auto 0.5 %; Lymphocytes Percent Auto 12.5 % (20-44); Mean Corpuscular HGB Conc 32 gm/dL (32-36); Mean Corpuscular Hemoglobin 30 pg (26-34); Mean Corpuscular Volume 95 fL (80-100); Monocytes Percent Auto 9.6 % (0.0-11.0); Neutrophils Percent Auto 74.7 % (42.0-72.0); Platelet Count* 181 K/uL (140-440); RDW Coefficient of Variation % 14.4 % (11.5-15.5); Red Blood Count 3.58 m/uL (4.30-5.90); White Blood Count* 6.38 K/uL (4.50-11.00)
[2023-08-20 19:50] LABS: Albumin* 4.3 g/dL (3.3-5.0); Chloride* 108 mmol/L (96-114)
[2023-08-20 19:51] LABS: Sodium* 138 mmol/L (135-149)
[2023-08-20 19:52] LABS: D Dimer Quantitative* 0.49 ug/ml (0.00-0.50)
[2023-08-20 19:53] LABS: Creatinine* 1.4 mg/dL (0.5-1.5); Est. Creatinine Clearance* 35.44; Estimated Glomerular Filt Rate 50 ml/min
[2023-08-20 19:54] LABS: Alanine Aminotransferase* 22 U/L (4-50); Alkaline Phosphatase* 59 U/L (40-150); Anion Gap 12 mEq/L (7-15); Aspartate Amino Transferase* 25 U/L (12-35); Bilirubin Total* 0.7 mg/dL (0.1-1.5); Blood Urea Nitrogen* 28 mg/dL (7-30); Calcium* 9.1 mg/dL (8.4-10.6); Carbon Dioxide* 18 mmol/L (20-32); Glucose* 118 mg/dL (60-115); Magnesium* 2.5 mg/dL (1.5-2.6); Total Protein* 6.7 g/dL (6.0-8.3)
[2023-08-20 19:58] LABS: Slide Review Reflex No
[2023-08-20 19:59] LABS: C Reactive Protein* < 0.5 mg/dL (0.5-1.0); Ethanol* < 0.01 % (0.01-0.03)
[2023-08-20 20:14] LABS: NT Pro B Type NatriureticPept* 148 pg/mL; Troponin I* < 0.01 ng/mL (0.01-0.04)
[2023-08-20 20:25] LABS: Appearance Urine Clear (Clear); Bilirubin Urine Negative (Negative); Blood Urine Trace-intact (Negative); Color Urine Yellow (Yellow); Glucose Urine 2+ (Negative); Ketones Urine Trace (Negative); Leukocyte Esterase Urine Negative (Negative); Nitrite Urine Negative (Negative); Protein Urine Negative (Negative); Specific Gravity Urine 1.015 (1.000-1.030); Urobilinogen Urine 0.2 (0.2-1.0); pH Urine 5.5 (5.0-8.5)
[2023-08-20 21:27] LABS: Bacteria Urine Few; Fine Granular Casts Urine Few; RBC Urine 0-2 (0-2); Squamous Epithelial Cell Urine Few (None-Few)
== END 2023-08-20 21:41 | disposition home or self-care (01) ==
PROVIDERS: Emergency Provider Family Medicine; PCP Family Medicine
DX: R55 Syncope and collapse (principal)
CPT/HCPCS: 36415; 70450; 80048; 80076; 81001; 82077; 83735; 83880; 84484; 85025; 85379; 86140; 87086; 93005; 94761; 99284; J7030

== ENCOUNTER 2025-02-10 10:54 | Emergency (ER) | payer MEDICARE, OTHER, SELFPAY ==
[2025-02-10] VITALS (11 sets, daily range): BP systolic 101–124; BP diastolic 52–64; PULSE 81–87; RESP 13–20; TEMP 36.5; O2SAT 92–97
--- OUTSIDE RECORDS SUMMARY | 2025-02-10 10:56 | XMS_ITS | Data Portability ---
Author Organization [place] [facility] [place] [facility] Address [address] [place] [address] Care Team Providers Care Mail Processing Clerk Name Role Phone THUY BURGER Primary Care Provider Assessment Encounter Date Assessment Date Assessment LastModified by Organization Details LastModified Time 06/29/2023 06/29/2023 83 year old male with benign prostatic hyperplasia with lower urinary tract symptoms. Not available 06/29/2023 08:32:43 Plan of Treatment Reminders Order Date Submit Date Provider Last Modified By Organization Details Last Modified Time Details Appointments None recorded. Lab urinalysis, dipstick 2022 023 [facility], [address], [address], [place], [address], 21:04:46 urinalysis, microscopic 2022 023 [facility], [address], [address], [place], [address], 21:04:48 Referral None recorded. Procedures None recorded. Surgeries None recorded. Imaging None recorded. Medication Orders tadalafil 20 mg tablet 2022 023 [id number], [address] [place], [place], [phone], 10:09:01 Patient TargetsNo targets recorded. Patient Instructions Encounter Date Encounter Id Patient Instructions Last Modified By Organization Details Last Modified Time 06/29/2023 [id number] Benign prostatic hyperplasia with lower urinary tract symptom: I had a long discussion with the patient regarding his symptom severity and desires for treatment. We first discussed continued medical therapy with alpha-blockade with or without the addition of finasteride 5 mg daily. We then discussed minimally invasive procedures done in the office under local anesthesia or monitored anesthesia care in the operating room, notably the Rezum, Urolift, and iTind procedures. We then discussed surgical outlet procedures done under anesthesia including bi-polar transurethral resection of prostate, transurethral laser vaporization of prostate, and holmium laser enucleation of prostate. I think that if he wants to pursue surgical therapy I would recommend cystoscopy and transrectal ultrasound sizing. At this point he is content to keep things the way they are and stick with combination therapy. If this changes, he will let me know. Erectile dysfunction: We discussed the use of phosphodiesterase inhibitors. We discussed this is often a first line therapy for men as it is discreet and can be utilized quickly on an as needed basis. We discussed that this is administered 30-60 minutes before intercourse on an empty stomach. We discussed side effects including flushing, vision changes (blue light vision), hypotension when combined with nitrates, and notably priapism. We discussed in the event of an erection lasting more than 4 hours this is an emergency and he must go to the nearest Emergency Department. Given his poor tolerance of sildenafil, we will try a course of tadalafil 20 mg as needed. He will return in 1 year. Not available 06/29/2023 10:08:51 Reason for Referral None Reported. Results Created Date Observation Date Name Description Value Unit Range Abnormal Flag Note LastModifiedBy Organization Detail LastModifiedTime 06/29/2006/29/2023 UA WITHO UT MICRO - CS URISC AN blood - uriscan TRACE negati ve abnormal Not Available [facility] [address], [place], [address], 06/29/2023 21:04:46 06/29/20 23 06/29/2023 UA WITHO UT MICRO - CS URISC AN bilirubin - uriscan NEGATI VE mg/dL negati ve Not Available [facility] [address], [place], [address], 06/29/2023 21:04:46 06/29/20 23 06/29/2023 UA WITHO UT MICRO - CS URISC AN urobilinogen - uriscan NORMAL mg/dL normal Not Available [facility] [address], [place], [address], 06/29/2023 21:04:46 06/29/20 23 06/29/2023 UA WITHO UT MICRO - CS URISC AN ketones - uriscan NEGATI VE mg/dL negati ve Not Available [facility] [address] [place] [address], [place], [address], 06/29/2023 21:04:46 06/29/2006/29/2023 UA WITHO UT MICRO - CS URISC AN protein - uriscan NEGATI VE mg/dL negati ve Not Available [facility] [address] [place] [address], [place], [address], 06/29/2023 21:04:46 06/29/2006/29/2023 UA WITHO UT MICRO - CS URISC AN nitrites - uriscan NEGATI VE negati ve Not Available [facility] [address], [place], [address], 06/29/2023 21:04:46 06/29/20 23 06/29/2023 UA WITHO UT MICRO - CS URISC AN glucose - uriscan 2000 mg/dL negati ve abnormal Not Available [facility] [address], [place], [address], 06/29/2023 21:04:46 06/29/20 23 06/29/2023 UA WITHO UT MICRO - CS URISC AN pH - uriscan 5.00 5.00-9 .00 Not Available [facility] [address] [place] [address], [place], [address], 06/29/2023 21:04:46 06/29/2006/29/2023 UA WITHO UT MICRO - CS URISC AN sp. gravity - uriscan 1.01 1.01-1 .03 Not Available [facility] [address], [place], [address], 06/29/2023 21:04:46 06/29/20 23 06/29/2023 UA WITHO UT MICRO - CS URISC AN leukocytes - uriscan NEGATI VE negati ve Not Available [facility] [address] [place] [address], [place], [address], 06/29/2023 21:04:46 06/29/2006/29/2023 UA WITHO UT MICRO - CS URISC AN color - uriscan YELLOW lt. yellow ;yello w Not Available [facility] [address] [place] [address], [place], [address], 06/29/2023 21:04:46 06/29/20 23 06/29/2023 UA WITHO UT MICRO - CS URISC AN clarity - uriscan CLEAR clear Not Available [facility] [address] [place] [address] [address], [place], [address], 06/29/2023 21:04:46 06/29/2006/29/2023 UA WITHO UT MICRO - CS URISC AN total urine volume (mL) 85 /mL ----- ----- ----- ----- ----- ----- ----- ----- ----- ----- ----- ----- ----- ----- ---- *Plea se note the follo wing minim um quant ities for addit ional urine testi ng: - Atypi cals: 3 mL - Cytol ogy: 20 mL - GC/CH : 2 mL - FISH: 30 mL - Atypi cals w/ GC/CH : 5 mL - Cytol ogy PLUS FISH: 50 mL - Urine Cultu re: 3 mL ----- ----- ----- ----- ----- ----- ----- ----- ----- ----- ----- ----- ----- ----- ---- This lab resul t is being provi ded to you and your provi dameon at the same time in compl [facility] with the u ry Cures Act. Your provi dameon may not have had time to revie w and make recom menda tions based on the resul t. Dionne e allow up to one week for provi dameon revie w. Not Available [facility] [address] [place] [address], [place], [address], 06/29/2023 21:04:46 06/29/2006/29/2023 UA MICRO SCOPI C U-WBC 0 - 2 [hpf] 0 - 2 Not Available [facility] [address] [place] [address] [address], [place], [address], 06/29/2023 21:04:48 06/29/20 23 06/29/2023 UA MICRO SCOPI C U-RBC 0 - 2 [hpf] 0 - 2 Not Available [facility] [address] [place] [address] [address], [place], [address], 06/29/2023 21:04:48 06/29/20 23 06/29/2023 UA MICRO SCOPI C bacteria NEGATI VE [hpf] negati ve Not Available [facility] [address] [place] [address] [address], [place], [address], 06/29/2023 21:04:48 06/29/20 23 06/29/2023 UA MICRO SCOPI C squamous epi NEGATI VE /lpf negati ve,sma ll This lab resul t is being provi ded to you and your provi dameon at the same time in compl iance with the Centu ry Cures Act. Your provi dameon may not have had time to revie w and make recom menda tions based on the resul t. Pleas e allow up to one week for provi dameon vicky w. Not Available [facility] [address], [place], [address], 06/29/2023 21:04:48 Result Notes None recorded. Problems Name Problem SNOMED Code Status Onset Date Resolution Date Notes Provider Name and Address Organization Details Recorded Time Coronary arterioscleros is 64115827 Active 2022 Pradeep Meat null, [facility] 3 11:04:46 Tinea pedis 6760459 Active 2022 Pradeep Meat null, [facility] 3 11:04:54 Gout 54183833 Active 2022 [facility] null, [facility] 3 11:05:03 Type 2 diabetes mellitus 97786789 Active 2022 [facility] null, [facility] 3 11:05:12 Hyperlipidemia 50535765 Active 2022 Pradeep Meat null, [facility] 3 11:05:19 Gastroesophage al reflux disease 502126058 [facility] 11:05:28 Anemia 091119773 Active 2022 Pradeep Meat null, [facility] 3 11:05:32 Problem Notes None recorded. Procedures Surgical History Date Name Laterality Status Provider Name and Address Organization Details Recorded Time 06/29/20 23 [facility]/29/2023 09:58:45 09/25/18 99 Diagnostic colonoscopy completed Not Available [facility] Note 06/28/2023 20:26:26 Excision epiphyseal bar completed Not Available [facility] Note 06/28/2023 20:26:26 Insert epicard eltrd open completed Not Available [facility] Note 06/28/2023 20:26:26 Removal of sperm duct(s) completed Not Available [facility] Note 06/28/2023 20:26:26 Imaging Results None recorded. Procedure Notes None recorded. Medical Equipment None Reported. Allergies No known drug allergies Medications Name Sig Start Date Stop Date Status Note LastModified by Organization Details LastModified Time carvedilol 6.25 mg tablet active Not Available Not Available Not Available glipizide 10 mg tablet 10mg 2/day active Not Available Not Available Not Available glipizide ER 5 mg tablet, extended release 24 hr TAKE 2 TABLETS BY MOUTH EVERY MORNING AND 1 TABLET EVERY EVENING active Not Available Not Available No t Available clopidogrel 75 mg tablet 75mg 1/day active Not Available Not Availa ble Not Available dexamethason e sodium phosphate 0.1 % eye drops INSTILL 1 DROP INTO RIGHT EYE FOUR TIMES A DAY DIRECTED (START AFTER SURGERY) active Not Available Not Available No t Available oxycodone-ac etaminophen 5 mg-325 mg tablet TAKE 1 TABLET BY MOUTH EVERY 4 TO 8 HOURS NEEDED FOR PAIN active Not Available Not Available No t Available tamsulosin 0.4 mg capsule 0.4mg 1/day active Not Available Not Available Not Available metformin 1,000 mg tablet active Not Available Not Available Not Available triamcinolon e acetonide 0.1 % topical ointment APPLY TOPICALLY TO THE AFFECTED AREA THREE TIMES DAILY active Not Available Not Available Not Available lisinopril 10 mg tablet 10mg 1/day active Not Available Not Availa ble Not Available polymyxin B sulfate 10,000 unit-trimeth oprim 1 mg/mL eye drops INSTILL 1 DROP IN RIGHT EYE FOUR TIMES DAILY DIRECTED. START AFTER SURGERY active Not Available Not Available No t Available finasteride 5 mg tablet 5mg 1/day active Not Available Not Availabl e Not Available ezetimibe 10 mg tablet 10mg 1/day active Not Available Not Available Not Available rosuvastatin 5 mg tablet TAKE 1 TABLET BY MOUTH ON WEDNESDAY AND WEDNESDAY active Not Available Not Available No t Available tadalafil 20 mg tablet TAKE 1 TABLET BY MOUTH EVERY DAY DIRECTED 1 HOUR PRIOR TO SEXUAL ACTIVITY active Not Available Not Available No t Available aspirin 81mg 1/day active Not Available Not A vailable Not Available carvedilol 6.5mg 2/day active Not Available N ot Available Not Available vitamins A,C,E-zinc-c opper don't know 1/day active Not Available Not Available No t Available cyanocobalam in (B12)-cobama mide 5,000 mcg-100 mcg sublingual lozenge 1000mg 1/day active Not Available Not Available No t Available ICaps AREDS 4,296 mcg-226 mg-90 mg capsule don't know 2/day active Not Available Not Available No t Available Invokana 100 mg tablet active Not Available Not Available No t Available Invokana 200mg 1/day active Not Available Not Available Not Available Accu-Chek Guide test strips TEST 2 TIMES/DAY active Not Available Not Available No t Available rosuvastatin 5 mg sprinkle capsule 5mg 2/week active Not Available Not Available N ot Available Paxlovid 150 mg-100 mg tablets in a dose pack (Moderate Renal Dose) TAKE 1 NIRMATREVIR 150 MG PINK OVAL TABLET AND 1 RITONAVIR 100 MG WHITE TABLET TOGETHER TWICE DAILY FOR 5 DAYS active Not Available Not Available N ot Available Vitals Date Recorded Body mass index (BMI) Body height Body weight Provider Name and Address Organization Details Last Updated DateTime 06/29/2023 25.6 kg/m2 165.1 cm 00559.3080 723466 g Not Available Health Note 06/29/2023 08:53:22 Social History Question Answer Notes LastModified by [employer] Details LastModified Time Tobacco Smoking Status Former Smoker Not Available Health Note 06/28/2023 20:26:26 What Is Your Level Of Caffeine Consumption? Occasional [email or web address] Information not available 06/28/2023 How Much Tobacco Do You Chew? None [email or web address] Information not available 06/28/2023 When Did You Quit Smoking? 16+yearssincel amaury Information not available 06/29/2023 What Was The Date Of Your Most Recent Tobacco Screening? 06/29/2023 [email or web address] Information not available 06/28/2023 Have You Ever Been Counseled For Unhealthy Alcohol Use? No Information not available 06/29/2023 What Is Your Relationship Status? [email or web address] Information not available 06/28/2023 Are You Sexually Active? No [email or web address] Information not available 06/28/2023 Has Tobacco Cessation Counseling Been Provided? No Information not available 06/29/2023 How Many Years Have You Smoked Tobacco? 20 [email or web address] Information not available 06/28/2023 How Many Days In The Past Year Have You Consumed 5 Or More Drinks? 0 [email or web address] Information no t available 06/28/2023 Sex: Unknown Functional Status Question Answer Note LastModified by Organizat ion Details LastModified Time Do you use any illicit or recreational drugs? No [email or web address] Information not available 06/28/2023 Do you or have you ever used any other forms of tobacco or nicotine? No Information not available 06/29/2023 What is your level of alcohol consumption? Occasional [email or web address] Information not available 06/28/2023 Do you or have you ever used smokeless tobacco? Never used smokeless tobacco [email or web address] Information not available 06/28/2023 Do you or have you ever used e-cigarettes or vape? Never used electronic cigarettes [email or web address] Information not available 06/28/2023 Mental Status None recorded. Family History Relationship Description Onset Age of this Age Resolved Age Notes LastModified by Organization Details LastModified Time Father Family history of cardiac disorder [email or web address] Not available 2022 20:26:24 Unspecified Relation Family history of malignant neoplasm of kidney [email or web address] Not available 2022 20:26:24 Medical History Condition Response High Blood Pressure Y Kidney Stones N Depression N Lung Disease N GERD/Acid Reflux N Sexually Transmitted Infection N Cancer N High Cholesterol Y Diabetes Y Bleeding Disorder N Heart Disease Y Immunizations Vaccine Type Date Status Note Provider Nam e and Address Organization Details Recorded Time influenza, unspecified formulation 2 completed Pradeep Ramon [facility] 06/29/2023 09:45:24 SARS-COV-2 (COVID-19) vaccine, UNSPECIFIED 1 completed Pradeep Ramon [facility] 06/29/2023 09:45:24 Influenza, high-dose, quadrivalent, PF 0 completed Pradeep Meath [facility] 06/29/2023 09:45:24 Influenza, high-dose, quadrivalent, PF 2 [facility] 09:45:24 Influenza, adjuvanted, quadrivalent, PF 1 completed [facility] 06/29/2023 09:45:24 Influenza, adjuvanted, quadrivalent, PF 3 completed [facility] 06/29/2023 09:45:24 COVID-19, mRNA, LNP-S, PF, 30 mcg/0.3 mL dose 1 completed Pradeep Meath null, [facility] 06/29/2023 09:45:24 COVID-19, mRNA, LNP-S, PF, 30 mcg/0.3 mL dose 1 completed Pradeep Meath null, [facility] 06/29/2023 09:45:24 COVID-19, mRNA, LNP-S, PF, 30 mcg/0.3 mL dose 1 completed Pradeep Meath null, [facility] 06/29/2023 09:45:24 COVID-19, mRNA, LNP-S, PF, 30 mcg/0.3 mL dose, luz maria-sucrose 2 completed [facility]ath null, [facility] 06/29/2023 09:45:24 COVID-19, mRNA, LNP-S, bivalent, PF, 30 mcg/0.3 mL dose 3 completed [facility]ep Meath null, [facility] 06/29/2023 09:45:24 COVID-19, mRNA, LNP-S, bivalent, PF, 30 mcg/0.3 mL dose 2 completed Pradeep Meath null, [facility] 06/29/2023 09:45:24 pneumococcal polysaccharide PPV23 9 completed Pradeep Meath null, [facility] 06/29/2023 09:45:24 Tdap 6 completed Pradeep Meath null, [facility] 06/29/2023 09:45:24 Pneumococcal conjugate PCV 13 5 completed Pradeep Meath null, [facility] 06/29/2023 09:45:24 zoster live 0 completed Pradeep Meath null, [facility] 06/29/2023 09:45:24 Influenza, high-dose, trivalent, PF 6 completed Pradeep Meath null, [facility] 06/29/2023 09:45:24 Influenza, high-dose, trivalent, PF 9 completed Pradeep Meath null, [facility] 06/29/2023 09:45:24 Influenza, high-dose, trivalent, PF 4 completed Pradeep Meath null, [facility] 06/29/2023 09:45:24 Influenza, high-dose, trivalent, PF 8 completed Pradeep Meath null, [facility] 06/29/2023 09:45:24 Influenza, high-dose, trivalent, PF 7 completed Pradeep Meath null, [facility] 06/29/2023 09:45:24 Influenza, split virus, trivalent, preservative 2 completed Pradeep Meath null, [facility] 06/29/2023 09:45:24 Influenza, split virus, trivalent, preservative 4 completed Pradeep Meath null, [facility] 06/29/2023 09:45:24 Influenza, split virus, trivalent, preservative 9 completed Pradeep Meath null, [facility] 06/29/2023 09:45:24 Influenza, split virus, trivalent, preservative 3 completed Pradeep Meath null, [facility] 06/29/2023 09:45:24 Influenza, split virus, trivalent, PF 1 completed Pradeep Meath null, [facility] 06/29/2023 09:45:24 Td (adult), 5 Lf tetanus toxoid, preservative free, adsorbed 6 completed Pradeep Meath null, [facility] 06/29/2023 09:45:24 Past Encounters Encounter ID Performer Location Encounter Start Date Encounter Closed Date Diagnosis/Indication Diagnosis SNOMED-CT Code Diagnosis ICD10 Code Diagnosis Note [id number] Brett Victor MD [facility] [address] [place] [address] 06/29/2023 08:53:13 06/29/2023 10:32:21 Lower urinary tract symptoms due to benign prostatic hypertrophy [id number] 9101 N40.1 Primary er ectile dysfunction 879340582 N52.9 Health Concerns Section Related Observation LastModified by Organization Detai ls LastModified Time None Recorded Concern Status LastModified by Organization Details LastModified Time None Recorded Advance Directives Directive None Recorded Payers Insurance Date Sequence Insurance Name Policy Number Policy Harding Covered Member ID Harding Member ID Guarantor Name 03/24/2024 1 [place]: [id number] NONE Jermain Nguyen Selina [id number] Jermain Nguyen Selina 03/24/2024 1 MEDICA - PRIME SOLUTION (MEDICARE REPLACEMENT/A DVANTAGE - HMO) [id number] Jermain Nguyen Selina [id number] Jermain Nguyen Selina 03/24/2024 1 MEDICA (MEDICARE REPLACEMENT/A DVANTAGE - PPO) [id number] Jermain Nguyen Selina [id number] Jermain Marks Notes Date Note Type Note Provider Name and Address Organization Details Recorded Time 06/29/2023 text/html This is a 83 yea r old male who is referred by Dr. Burger for the evaluation and management of benign prostatic hyperplasia with lower urinary tract symptoms. International Prostate Symptom Score: 11He currently manages her symptoms with tamsulosin 0.4 mg daily and finasteride 5 mg daily.There is no history of recurrent urinary tract infections.There is no history of urinary retention.He denies gross hematuria. He has erectile dysfunction.He tried sildenafil years ago but discontinued this due to side effects. Brett Victor MD [address] [place] [address],[address], [place], [address], [facility] 06/29/2023 10:09:01
--- OUTSIDE RECORDS SUMMARY | 2025-02-10 10:56 | XMS_ITS | Data Portability ---
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 Not available 06/29/2023 08:32:43 Plan of Treatment Reminders Order Date Submit Date Provider Last Modified By Organization Details Last Modified Time Details Appointments None recorded. Lab urinalysis, dipstick 2022 023 [facility], [address], [address], [place], [address], 21:04:46 urinalysis, microscopic 2022 023 [facility], [address], [address], [place], [address], 21:04:48 Referral None recorded. Procedures None recorded. Surgeries None recorded. Imaging None recorded. Medication Orders tadalafil 20 mg tablet 2022 023 [id number], [address] [place], [place], [phone], 10:09:01 Patient TargetsNo targets recorded. Patient Instructions Encounter Date Encounter Id Patient Instructions Last Modified By Organization Details Last Modified Time 06/29/2023 [id number] Benign prostatic hyperplasia with lower urinary tract [...] uriscan TRACE negati ve abnormal Not Available [facility] [address] [facility] [address], [place], [address], 06/29/2023 21:04:46 06/29/20 23 06/29/2023 UA WITHO UT MICRO - CS URISC AN bilirubin - uriscan NEGATI VE mg/dL negati ve Not Available [facility] [address] [facility] [facility] [address], [place], [address], 06/29/2023 21:04:46 06/29/20 23 06/29/2023 UA WITHO UT MICRO - CS URISC AN urobilinogen - uriscan NORMAL mg/dL normal Not Available [facility] [address] [facility] [address], [place], [address], 06/29/2023 21:04:46 06/29/20 23 06/29/2023 UA WITHO UT MICRO - CS URISC AN ketones - uriscan NEGATI VE mg/dL negati ve Not Available [facility] [address] [place] [address] [address], [place], [address], 06/29/2023 21:04:46 06/29/2006/29/2023 UA WITHO UT MICRO - CS URISC AN protein - uriscan NEGATI VE mg/dL negati ve Not Available [facility] [address] [place] [address] [address], [place], [address], 06/29/2023 21:04:46 06/29/2006/29/2023 UA WITHO UT MICRO - CS URISC AN nitrites - uriscan NEGATI VE negati ve Not Available [facility] [address] [facility] [address], [place], [address], 06/29/2023 21:04:46 06/29/20 23 06/29/2023 UA WITHO UT MICRO - CS URISC AN glucose - uriscan 2000 mg/dL negati ve abnormal Not Available [facility] [address] [facility] [address], [place], [address], 06/29/2023 21:04:46 06/29/20 23 06/29/2023 UA WITHO UT MICRO - CS URISC AN pH - uriscan 5.00 5.00-9 .00 Not Available [facility] [address] [place] [address], [place], [address], 06/29/2023 21:04:46 06/29/2006/29/2023 UA WITHO UT MICRO - CS URISC AN sp. gravity - uriscan 1.01 1.01-1 .03 Not Available [facility] [address] [facility] [address], [place], [address], 06/29/2023 21:04:46 06/29/20 23 06/29/2023 UA WITHO UT MICRO - CS URISC AN leukocytes - uriscan NEGATI VE negati ve Not Available [facility] [address] [place] [address], [place], [address], 06/29/2023 21:04:46 06/29/2006/29/2023 UA WITHO UT MICRO - CS URISC AN color - uriscan YELLOW lt. yellow ;yello w Not Available [facility] [address] [place] [address], [place], [address], 06/29/2023 21:04:46 06/29/20 23 06/29/2023 UA WITHO UT MICRO - CS URISC AN clarity - uriscan CLEAR clear Not Available [facility] [address] [place] [address] [address], [place], [address], 06/29/2023 21:04:46 06/29/2006/29/2023 UA WITHO UT MICRO [...] dameon at the same time [facility] with [facility] u ry Cures Act. Your provi dameon may not have had time to revie w and make recom menda tions based on the resul t. Dionne e allow up to one week for provi dameon revie w. Not Available [facility] [address] [place] [address], [place], [address], 06/29/2023 21:04:46 06/29/2006/29/2023 UA MICRO SCOPI C U-WBC 0 - 2 [hpf] 0 - 2 Not Available [facility] [address] [place] [address] [address], [place], [address], 06/29/2023 21:04:48 06/29/20 23 06/29/2023 UA MICRO SCOPI C U-RBC 0 - 2 [hpf] 0 - 2 Not Available [facility] [address] [place] [address] [address], [place], [address], 06/29/2023 21:04:48 06/29/20 23 06/29/2023 UA MICRO SCOPI C bacteria NEGATI VE [hpf] negati ve Not Available [facility] [address] [place] [address] [address], [place], [address], 06/29/2023 21:04:48 06/29/20 23 06/29/2023 UA MICRO [...] for provi dameon vicky w. Not Available [facility] [address], [place], [address], 06/29/2023 21:04:48 Result Notes None recorded. Problems Name Problem SNOMED Code Status Onset Date Resolution Date Notes Provider Name and Address Organization Details Recorded Time Coronary arterioscleros is 91664428 Active 2022 Pradeep Meat null, [facility] 3 11:04:46 Tinea pedis 2133010 Active 2022 Pradeep Meat null, [facility] 3 11:04:54 Gout 98789386 Active 2022 [facility] null, [facility] 3 11:05:03 Type 2 diabetes mellitus 50210889 Active 2022 [facility] null, [facility] 3 11:05:12 Hyperlipidemia 23449532 Active 2022 Pradeep Meat null, [facility] 3 11:05:19 Gastroesophage al reflux disease 376058460 [facility] 11:05:28 Anemia 100577270 Active 2022 Pradeep Meat null, [facility] 3 11:05:32 Problem Notes None recorded. Procedures Surgical History Date Name Laterality Status Provider Name and Address Organization Details Recorded Time 06/29/20 23 [facility] 09:58:45 09/25/18 99 Diagnostic colonoscopy completed [...] Updated DateTime 06/29/2023 25.6 kg/m2 165.1 cm 60507.3080 028268 g Not Available Health Note 06/29/2023 08:53:22 Social History Question Answer Notes LastModified by [employer] Details LastModified Time Tobacco Smoking Status Former [...] influenza, unspecified formulation 2 completed Pradeep Ramon [facility] 06/29/2023 09:45:24 SARS-COV-2 (COVID-19) vaccine, UNSPECIFIED 1 completed Pradeep Ramon [facility] 06/29/2023 09:45:24 Influenza, high-dose, quadrivalent, PF 0 completed Pradeep Meath [facility] 06/29/2023 09:45:24 Influenza, high-dose, quadrivalent, PF 2 [facility] 09:45:24 Influenza, adjuvanted, quadrivalent, PF 1 completed [facility]/29/2023 09:45:24 Influenza, adjuvanted, quadrivalent, PF 3 completed [facility]/29/2023 09:45:24 COVID-19, mRNA, LNP-S, PF, 30 mcg/0.3 mL dose 1 completed Pradeep Meath null, [facility] 06/29/2023 09:45:24 COVID-19, mRNA, LNP-S, PF, 30 mcg/0.3 mL dose 1 completed Pradeep Meath null, [facility] 06/29/2023 09:45:24 COVID-19, mRNA, LNP-S, PF, 30 mcg/0.3 mL dose 1 completed Pradeep Meath null, [facility] 06/29/2023 09:45:24 COVID-19, mRNA, LNP-S, PF, 30 mcg/0.3 mL dose, luz maria-sucrose 2 completed Pradeep Meath null, [facility] 06/29/2023 09:45:24 COVID-19, mRNA, LNP-S, bivalent, PF, 30 mcg/0.3 mL dose 3 completed Pradeep Meath null, [facility] 06/29/2023 09:45:24 COVID-19, mRNA, LNP-S, bivalent, PF, 30 mcg/0.3 mL dose 2 completed Pradeep Meath null, [facility] 06/29/2023 09:45:24 pneumococcal polysaccharide PPV23 9 completed Pradeep Meath null, [facility] 06/29/2023 09:45:24 Tdap 6 completed Pradeep Meath null, [facility] 06/29/2023 09:45:24 Pneumococcal conjugate PCV 13 5 completed Pradeep Meath null, [facility] 06/29/2023 09:45:24 zoster live 0 completed Pradeep Meath null, [facility] 06/29/2023 09:45:24 Influenza, high-dose, trivalent, PF 6 completed Pradeep Meath null, [facility] 06/29/2023 09:45:24 Influenza, high-dose, trivalent, PF 9 completed Pradeep Meath null, [facility] 06/29/2023 09:45:24 Influenza, high-dose, trivalent, PF 4 completed Pradeep Meath null, [facility] 06/29/2023 09:45:24 Influenza, high-dose, trivalent, PF 8 completed Pradeep Meath null, [facility] 06/29/2023 09:45:24 Influenza, high-dose, trivalent, PF 7 completed Pradeep Meath null, [facility] 06/29/2023 09:45:24 Influenza, split virus, trivalent, preservative 2 completed Pradeep Meath null, [facility] 06/29/2023 09:45:24 Influenza, split virus, trivalent, preservative 4 completed Pradeep Meath null, [facility] 06/29/2023 09:45:24 Influenza, split virus, trivalent, preservative 9 completed Pradeep Meath null, [facility] 06/29/2023 09:45:24 Influenza, split virus, trivalent, preservative 3 completed Pradeep Meath null, [facility] 06/29/2023 09:45:24 Influenza, split virus, trivalent, PF 1 completed Pradeep Meath null, [facility] 06/29/2023 09:45:24 Td (adult), 5 Lf tetanus toxoid, preservative free, adsorbed 6 completed Pradeep Meath null, [facility] 06/29/2023 09:45:24 Past Encounters Encounter ID Performer Location Encounter Start Date Encounter Closed Date Diagnosis/Indication Diagnosis SNOMED-CT Code Diagnosis ICD10 Code Diagnosis Note [id number] Brett Victor MD [facility] [address] [place] [address] 06/29/2023 08:53:13 06/29/2023 10:32:21 Lower urinary tract symptoms due to benign prostatic hypertrophy 3307495238 9101 N40.1 Primary er ectile dysfunction 941779503 N52.9 Health Concerns Section Related Observation LastModified by Organization Detai ls LastModified Time None Recorded Concern Status LastModified by Organization Details LastModified Time None Recorded Advance Directives Directive None Recorded Payers Insurance Date Sequence Insurance Name Policy Number Policy Harding Covered Member ID Harding Member ID Guarantor Name 03/24/2024 1 [place]: [employer] NONE Jermain Nguyen Selina [id number] Jermain Nguyen Selina 03/24/2024 1 MEDICA - PRIME SOLUTION (MEDICARE REPLACEMENT/A DVANTAGE - HMO) [id number] Jermain Nguyen Selina [id number] Jermain Nguyen Selina 03/24/2024 1 MEDICA (MEDICARE REPLACEMENT/A DVANTAGE - PPO) [id number] Jermain Nguyen Selina [id number] Jermain Marks Notes Date Note Type Note [...] due to side effects. Brett Victor MD [address] [place] [address],[address], [place], [address], [facility] 06/29/2023 10:09:01
--- NOTE | 2025-02-10 11:43 | ED.DIZZY ---
HPI - Dizziness General Chief Complaint: Dizziness/Vertigo Stated Complaint: chest pain Time Seen by Provider: 02/10/25 11:18 History of Present Illness HPI Narrative: This 85-year-old male comes in reporting an episode of lightheadedness that occurred about an hour prior to arrival. He states that he took his normal morning medicines about an hour prior to this. He was sitting in a chair when he began to feel lightheaded and felt that he would be unsafe to be try to get up and ambulate. He did not have any chest pain or shortness of breath. He did began to feel little bit sweaty. He does have a cardiac history and did have a myocardial infarction some years ago. He has been doing well since then. He states that he had a stent placed about 7 weeks ago and since then has been doing cardiac rehab without any symptoms. He also has started taking doyle jar 0 and has lost about 20 lb. He does not report any exercise intolerance. Currently he feels back to normal. He arrives here with a systolic blood pressure of 124 but repeat pressure was checked while I was interviewing him and showed a systolic value of 100. He does not report any symptoms of infection. Related Data Home Medications ?Medication ?Instructions ?Recorded ?Confirmed carvedilol 6.25 mg tablet 6.25 mg PO BID 04/07/22 02/10/25 clopidogrel 75 mg tablet 75 mg PO DAILY 04/07/22 02/10/25 cyanocobalamin (vitamin B-12) 1,000 mcg PO DAILY 04/07/22 02/10/25 1,000 mcg capsule ezetimibe 10 mg tablet 10 mg PO DAILY 04/07/22 02/10/25 finasteride 5 mg tablet 5 mg PO DAILY 04/07/22 02/10/25 glipizide 5 mg tablet 10 mg PO DAILY 04/07/22 02/10/25 lancets (Accu-Chek Fastclix Lancet 04/07/22 01/22/23 [place]) lisinopril 10 mg tablet 5 mg PO DAILY 04/07/22 02/10/25 metformin 1,000 mg tablet 1,000 mg PO BIDWMEAL 04/07/22 02/10/25 multivitamin 1 tab PO DAILY 04/07/22 04/10/24 rosuvastatin 5 mg tablet 5 mg PO .mon/thurs 04/07/22 02/10/25 tamsulosin 0.4 mg capsule 0.4 mg PO DAILY 04/07/22 04/10/24 canagliflozin 100 mg tablet 100 mg PO QAM 04/02/23 02/10/25 (Invokana) vitamins A,C,Y-wuxt-mffqay 2,148 2 tab PO BID 04/10/24 04/10/24 mcg-113 mg-45 mg-17.4 mg tablet (PreserVision AREDS) aspirin 81 mg tablet 81 mg PO DAILY 02/10/25 02/10/25 tirzepatide 5 mg/0.5 mL 5 mg subcut QWEEK 02/10/25 02/10/25 subcutaneous pen injector (Flacouncaridad) Allergies Allergy/AdvReac Type Severity Reaction Status Date / Time Tpclksd-QTG-UiS Reductase Allergy Intermediate Muscle Pain Verified 02/10/25 11:06 Inhibitor Review of Systems Status of ROS: Reports: 10 or more systems reviewed and unremarkable except as noted in History and below Narrative: Constitutional: No fevers, no weight gain or loss. Eyes: No discharge. No vision changes. HENT: No congestion, no sore throat, no ear pain. Cardiovascular: No chest pain, no palpitations. Respiratory: No shortness of breath, no wheezes, no cough. Gastrointestinal: No abdominal pain, no vomiting, no diarrhea. Genitourinary: No dysuria, no hematuria. Musculoskeletal: Normal range of motion. Skin: No rashes, no pruritis. Neurological: No weakness, sensory change, speech change. Lightheadedness symptoms as described above. Endo/Heme/Allergies: No bruising or bleeding. No polydipsia. Pysch: no suicidality, no anxiety, no insomnia. All other systems reviewed and are negative. [facility] Medical History (Reviewed 04/10/24 @ 09:31 by Ebony Prado, DIRECTOR PACKAGING, DENTAL DETAIL REPRESENTATIVE) Coronary artery disease involving [place] coronary artery without angina pectoris ?I25.10 - Atherosclerotic heart disease of [place] coronary artery without angina pectoris (ICD-10) B12 deficiency ?E53.8 - Deficiency of other specified B group vitamins (ICD-10) BPH (benign prostatic hyperplasia) ?N40.0 - Benign prostatic hyperplasia without lower urinary tract symptoms (ICD-10) Hyperlipemia ?E78.5 - Hyperlipidemia, unspecified (ICD-10) Thyroid nodule ?E04.1 - Nontoxic single thyroid nodule (ICD-10) Diabetes mellitus type 2, controlled ?E11.9 - Type 2 diabetes mellitus without complications (ICD-10) Gout ?M10.9 - Gout, unspecified (ICD-10) GERD (gastroesophageal reflux disease) ?K21.9 - Gastro-esophageal reflux disease without esophagitis (ICD-10) Migraine ?G43.909 - Migraine, unspecified, not intractable, without status migrainosus (ICD-10) TERRI (obstructive sleep apnea) ?G47.33 - Obstructive sleep apnea (adult) (pediatric) (ICD-10) Personal history of poliomyelitis ?Z86.12 - Personal history of poliomyelitis (ICD-10) Non-ST elevation myocardial infarction (NSTEMI) ?I21.4 - Non-ST elevation (NSTEMI) myocardial infarction (ICD-10) Surgical History Status post arthroscopy of right shoulder (12/07/22) ?Z98.890 - Other specified postprocedural states (ICD-10) Hx of arthroscopy of left knee ?Z98.890 - Other specified postprocedural states (ICD-10) History of surgery ?Z98.890 - Other specified postprocedural states (ICD-10) History of back surgery ?Z98.890 - Other specified postprocedural states (ICD-10) Status post left rotator cuff repair (04/08/22) ?Z98.890 - Other specified postprocedural states (ICD-10) Social History Smoking Status: Former smoker What tobacco products do you use: cigarettes Smoking quit date/years: >15 years ago Do you use any of these nicotine containing products: None How often do you have a drink containing alcohol: 4 or more times a week Alcohol type: hard liquor How many standard drinks containing alcohol do you have on a typical day: 1 or 2 How often do you have six or more drinks on one occasion: Never AUDIT-C Alcohol total score: 4 Non-prescribed substance use: denies use Caffeine: Yes Exam Narrative: Exam Narrative: Constitutional: Well-developed, well-nourished, no acute distress. HEENT: Normocephalic, atraumatic. Neck: Normal range of motion. Nontender. Supple. Heart: Regular. No murmurs. Normal rate. Intact distal pulses. Lungs: Clear to auscultation. No chest discomfort. No wheezes, rhonchi, or rales. Abdomen: Normal bowel sounds. Nontender. No rebound tenderness. Genitalia: Deferred. Back: No midline tenderness. Normal range of motion. Extremities: Normal range of motion. No injury. Skin: Intact. No rash. Warm. No erythema or pallor. Neurologic: No altered sensation. No weakness. Alert and oriented. Psychiatric: No suicidality. No anxiety or depression. No insomnia. Nursing notes and vitals signs are reviewed. Const: Vital Signs, click to edit/add: Vital Signs - 24 hr 02/10/25 11:07 Temperature 97.7 F Pulse Rate [Pulse Oximeter] 81 Respiratory Rate 16 Blood Pressure [Ri t Upper Arm] 124/64 Pulse Oximetry 92 Oxygen Delivery Me thod Room Air Course Vital Signs Vital signs: Initial Vital Signs Temperature 97.7 F 02/10/25 11:07 Temperature Source Temporal Artery Scan 02/10/25 11:07 Pulse Rate 81 02/10/25 11:07 Respiratory Rate 16 02/10/25 11:07 Blood Pressure 124/64 02/10/25 11:07 Blood Pressure Mean 84 02/10/25 11:07 Blood Pressure Position Sitting 02/10/25 11:07 Pulse Oximetry 92 02/10/25 11:07 Oxygen Delivery Method Room Air 02/10/25 11:07 Vital Signs Temperature 97.7 F 02/10/25 11:07 Pulse Rate 81 02/10/25 11:07 Respiratory Rate 16 02/10/25 11:07 Blood Pressure 124/64 02/10/25 11:07 Pulse Oximetry 92 02/10/25 11:07 Oxygen Delivery Method Room Air 02/10/25 11:07 Temperature 97.7 F 02/10/25 11:07 Pulse Rate 81 02/10/25 11:07 Respiratory Rate 16 02/10/25 11:07 Blood Pressure 124/64 02/10/25 11:07 Pulse Oximetry 92 02/10/25 11:07 Oxygen Delivery Method Room Air 02/10/25 11:07 MDM - Dizziness MDM Narrative Medical decision making narrative: This patient comes in reporting an episode of lightheadedness as described above. Currently he feels normal and did not ever have any chest pain. He does currently have good exercise tolerance. His EKG here shows normal sinus rhythm without any ST or T-wave abnormalities. Labs are acquired also and these returned with reassuring results. His troponin is 0. His hemoglobin is a bit low at 11.1 but this is consistent with previous results. Other labs are normal range except glucose elevated at 244. This patient has lost about 20 lb as he is taking wound RO. He may have less of a need for antihypertensive medications. His symptoms today occurred about a hour after taking his morning meds. He is taking carvedilol and lisinopril which have benefits for him but may be more than what he needs for his blood pressure specially now after losing some weight. I advised him to hold 1 or both of these medicines and record blood pressures for a follow-up appointment with his primary physician. Lab Data Labs: Lab Results 02/10/25 02/10/25 Range/Units 11:42 11:52 WBC 6.09 (4.50-11.00) K/uL RBC 3.58 L (4.30-5.90) m/uL Hgb 11.1 L (13.5-17.5) gm/dL Hct 33.7 L (37.0-53.0) % MCV 94 (80-100) fL MCH 31 (26-34) pg MCHC 33 (32-36) gm/dL RDW Coeff of Hawa 14.1 (11.5-15.5) % Plt Count 188 (140-440) K/uL Neut % (Auto) 71.6 (42.0-72.0) % Lymph % (Auto) 13.6 L (20-44) % [place] % (Auto) 11.0 (0.0-11.0) % Eos % (Auto) 3.3 (0.0-7.0) % Baso % (Auto) 0.3 (0.0-3.0) % Neut # (Auto) 4.36 (1.7-7.0) K/uL Lymph # (Auto) 0.80 L (0.90-2.90) K/uL [place] # (Auto) 0.70 (0.00-0.90) K/UL Eos # (Auto) 0.20 (0.00-0.50) K/uL Baso # (Auto) 0.02 (0.00-0.30) K/uL Abs Immat Gran (auto) 0.01 (0.00-0.30) K/uL Imm/Tot Granulo (auto) 0.2 % Sodium 138 (135-149) mmol/L Potassium 4.7 (3.6-5.1) mmol/L Chloride 104 (96-114) mmol/L Carbon Dioxide 25 (20-32) mmol/L Anion Gap 9 (7-15) mEq/L BUN 36 H (7-30) mg/dL Creatinine 1.3 (0.5-1.5) mg/dL Estimated GFR 54 ml/min Glucose 244 H (60-115) mg/dL Calcium 9.4 (8.4-10.6) mg/dL POC Troponin I 0.00 L (0.01-0.04) ng/ml ECG Data Attestation: I personally reviewed and interpreted this ECG as follows: Interpretation: Normal sinus rhythm. Rate is 79 beats per minute. There are no ST or T-wave abnormalities. Discharge Plan Discharge Clinical Impression: Episodic lightheadedness Patient Disposition: Home, Self-Care Condition: Improved Additional Instructions: Okay to hold either Coreg or Lisinopril or both over the next few days during which time he should record blood pressures and make note of any symptoms of lightheadedness. Follow-up with primary physician or invisible braces orthodontist for ongoing management with these results of blood pressure checks. Return if worsening. Prescriptions: No Action Invokana 100 mg tablet 100 mg PO QAM PreserVision AREDS 2,148 mcg-113 mg-45 mg-17.4mg tablet 2 tab PO BID Rx Instructions: administer with AM and PM meals aspirin 81 mg tablet 81 mg PO DAILY Mounjaro 5 mg/0.5 mL pen injector 5 mg subcut QWEEK carvedilol 6.25 mg tablet 6.25 mg PO BID Rx Instructions: must administer with a meal/food clopidogrel 75 mg tablet 75 mg PO DAILY cyanocobalamin (vitamin B-12) 1,000 mcg capsule 1,000 mcg PO DAILY ezetimibe 10 mg tablet 10 mg PO DAILY finasteride 5 mg tablet 5 mg PO DAILY glipizide 5 mg tablet 10 mg PO DAILY (DME) lancets [Accu-Chek Fastclix Lancet Drum] Misc See Rx Instructions .Route Rx Instructions: As directed lisinopril 10 mg tablet 5 mg PO DAILY metformin 1,000 mg tablet 1,000 mg PO BIDWMEAL multivitamin Tablet 1 tab PO DAILY rosuvastatin 5 mg tablet 5 mg PO .mon/ tamsulosin 0.4 mg capsule 0.4 mg PO DAILY Follow Up/Referrals: Samia Burger MD [Primary Care Provider, Family Practice] Stand Alone Forms: [facility]
--- OUTSIDE RECORDS SUMMARY | 2025-02-10 11:51 | XMS_ITS | Clinical Summary ---
Author Organization [facility] Address [address] [place] [id number] Care Team Providers Care [employer]orer [employer] Name Role Phone Samia Burger MD Primary Care Provider Irvin Rice MD Unavailable Robert Silva MD Unavailable Allergies Active Allergy Reactions Criticality Noted Date Comments Yqwiqxe-Qew-Qup Reductase Inhibitors Myalgia,Muscle Weakness High 01/01/2015 Medications multivitamin (MVI) tablet Take 1 tablet by mouth once daily. 0 05/07/20 20 Active Blood-Glucose Meter (Accu-Chek Guide Me Glucose Mtr)Indications:Co ntrolled type 2 diabetes mellitus with complication, without long-term current use of insulin (HC) Dispense glucose meter covered by the patient insurance. Test 2 times per day. (patient is replacing the accu-check guide me meter and prefers this as a replacement if covered) 1 Each 03/06/20 22 Active nitroglycerin (NITROSTAT) 0.4 mg sublingual tabletIndications: Coronary artery disease involving ho-chunk coronary artery without angina pectoris, unspecified whether ho-chunk or transplanted heart Place 1 Tablet (0.4 mg) under the tongue every 5 minutes if needed for Chest Pain. Up to 3 tablets in 15 minutes. 30 Tablet 02/11/20 24 Active finasteride (PROSCAR) 5 mg tabletIndications: Benign prostatic hyperplasia with incomplete bladder emptying Take 1 Tablet (5 mg) by mouth once daily in the morning. 90 Tablet 3 06/30/20 24 Active triamcinolone 0.1 % lotionIndications: Dermatitis Apply topically to affected area(s) three times daily. 60 mL 06/30/20 24 Active tamsulosin 0.4 mg capsuleIndications :BPH without urinary obstruction Take 1 Capsule (0.4 mg) by mouth once daily after a meal. 90 Capsule 10/06/19 Active rosuvastatin (CRESTOR) 5 mg tabletIndications: Coronary artery disease involving ho-chunk coronary artery without angina pectoris, unspecified whether ho-chunk or transplanted heart TAKE 1 TABLET BY MOUTH ON WEDNESDAY AND WEDNESDAY 24 Tablet 10/06/19 25 Active carvediloL (COREG) 6.25 mg tabletIndications: Coronary artery disease involving ho-chunk coronary artery without angina pectoris, unspecified whether ho-chunk or transplanted heart Take 1 Tablet (6.25 mg) by mouth two times daily with meals. 180 Tablet 10/06/19 Active cyanocobalamin (Vitamin B-12) 1,000 mcg tabletIndications: B12 deficiency Take 1 Tablet (1,000 mcg) by mouth once daily. 90 Tablet 10/06/19 Active blood sugar diagnostic (Accu-Chek Guide test strips) stripIndications:U ncontrolled type 2 diabetes mellitus with hyperglycemia (HC) TEST 2 TIMES/DAY 200 Each 10/06/19 Active pen needle, diabetic (Comfort EZ Pen [place]) 33 gauge x 5/32 ndleIndications:Ty pe 2 diabetes mellitus without complication, without long-term current use of insulin (HC) As directed. 100 Each 10/06/19 Active lancets (Accu-Chek Fastclix Lancet Drum)Indications:U ncontrolled type 2 diabetes mellitus with hyperglycemia (HC) Dispense item covered by pt ins. E11.9 IDDM type II - Test 2 times/day. 200 Each 10/06/19 25 Active FreeStyle Flip 3 Plus Sensor for continuous blood glucose monitor (CGM)Indications:U ncontrolled type 2 diabetes mellitus with hyperglycemia (HC) To be used to read blood sugars, change sensor every 15 days. 6 Each 10/06/19 25 Active advertising sales consultant (FreeStyle Flip 3 [place]) for continuous blood glucose monitor (CGM)Indications:U ncontrolled type 2 diabetes mellitus with hyperglycemia (HC) To be used to read blood sugars follow assurance manager directions. 1 Each 10/06/19 25 Active antiox #8/om3/dha/epa/lut /zeax (PRESERVISION AREDS 2 (OMEGA-3) ORAL) Take 1 Tablet by mouth two times daily. Active aspirin chewable 81 mg chewable tabletIndications: Coronary artery disease involving ho-chunk coronary artery without angina pectoris, unspecified whether ho-chunk or transplanted heart Take 1 Tablet (81 mg) by mouth or nasogastric tube once daily. 30 Tablet 11 5 11:00 AM CDT 12/24/19 25 Active clopidogreL 75 mg tabletIndications: Coronary artery disease involving ho-chunk coronary artery without angina pectoris, unspecified whether ho-chunk or transplanted heart Take 1 Tablet (75 mg) by mouth once daily in the morning. 90 Tablet 3 12/23/19 25 Active glipiZIDE extended-release 5 mg Extended-Release tabletIndications: Uncontrolled type 2 diabetes mellitus with hypoglycemia without coma (HC) TAKE 2 TABLETS BY MOUTH EVERY MORNING 180 Tablet 1 01/06/20 25 Active metFORMIN 1,000 mg tabletIndications: Uncontrolled type 2 diabetes mellitus with hypoglycemia without coma (HC) Take 1 Tablet (1,000 mg) by mouth two times daily with meals. 180 Tablet 01/06/20 25 Active tirzepatide (Mounjaro) 5 mg/0.5 mL penIndications:Unc ontrolled type 2 diabetes mellitus with hypoglycemia without coma (HC) Inject 5 mg subcutaneous once weekly. 6 mL 01/06/20 25 Active lisinopriL 5 mg tabletIndications: Coronary artery disease involving ho-chunk coronary artery without angina pectoris, unspecified whether ho-chunk or transplanted heart Take 1 Tablet (5 mg) by mouth once daily in the evening. 90 Tablet 1 01/06/20 25 Active ezetimibe 10 mg tabletIndications: Hyperlipidemia, unspecified hyperlipidemia type Take 1 Tablet (10 mg) by mouth once daily in the evening. 90 Tablet 01/06/20 25 Active canagliflozin (Invokana) 100 mg tabletIndications: Uncontrolled type 2 diabetes mellitus with hypoglycemia without coma (HC) Take 1 Tablet (100 mg) by mouth once daily. 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, unspecified stage 03/09/2023 Stage 3a chronic kidney disease 11/14/2021 Acute pain of right shoulder 11/14/2021 History of non-ST elevation myocardial infarctio n (NSTEMI) 11/14/2021 Coronary artery disease invo lving ho-chunk coronary artery without angina pectoris 11/14/2021 Closed fracture of proximal end of right tibia with routine healing 07/23/2021 Controlled type 2 diabetes m ellitus with complication, without long-term current use of insulin 02/07/2021 Chronic pain of left knee 08/07/2020 Chronic left shoulder pain 08/07/2020 Type 2 diabetes mellitus wit h chronic kidney disease, without long-term current use of insulin 05/24/2019 Microalbuminuria 11/18/2018 B12 deficiency 05/17/2018 Overview (05/17/2018): Likely 2/2 to metformin use. Seborrheic keratosis 05/16/2018 Incomplete emptying of bladd er due to benign prostatic hyperplasia 05/16/2018 Postural dizziness with presyncope 06/16/2016 Tinea pedis 06/14/2015 Hyperlipidemia 06/14/2015 BPH (benign prostatic hyperplasia) 06/14/2015 Thyroid nodule 01/01/2015 DM type 2 (diabetes mellitus, type 2) 07/05/2014 Risk for falls 03/29/2014 Gout 10/11/2012 GERD (gastroesophageal reflux disease) 2 Benign neoplasm of colon 02/26/2010 Overview (12/30/2018): Colonoscopy 02/2010 polyp repeat in 5 years Colonoscopy 12/2018 normal, repeat in 5 years Epididymal cyst 07/26/2009 Anemia 07/19/2009 Personal history of poliomyelitis 12/07/2006 Overview (12/07/2006): ATROPHY RIGHT LEG Osteoarthrosis, unspecified whether generalized or localized, lower leg 12/07/2006 Migraine, unspecified, witho ut mention of intractable migraine without mention of status migrainosus 12/07/2006 Overview (12/07/2006): OPATHALMIC Unspecified sleep apnea 12/07/2006 Mumps orchitis 12/07/2006 Overview (12/07/2006): ONE TESTICLE Calculus of kidney 12/07/2006 Resolved Problems Problem Noted Date Diagnosed Date Resolved Date Uncontrolled type 2 diabetes mellitus with hyperglycemia 06/30/2024 12/13/2024 Uncontrolled type 2 diabetes mellitus with hypoglycemia without coma 08/07/2020 12/13/2024 Personal history of colonic polyps 02/26/2010 12/24/2014 Postop Check 04/23/2009 04/11/2012 Preop exam for internal medicine 04/08/2009 02/20/2011 HYPERCHOLESTEROLEMIA 12/07/2006 015 DIABETES 08/15/2002 07/05/2014 Encounters Date Type Department Care Team Description 02/02/2025 3:00 PM CDT Office Visit [address] [place] [address] Kumar Clarke MD Follow Up (FOLLOW UP, CORONARY ANGIOGRAM DONE 12/21/24. /Pt states occasional lightheaded. ) 02/02/2025 Travel 01/24/2025 2:53 PM CDT - 01/24/2025 11:59 PM CDT Hospital Encounter [facility] [address] [place] [address] 01/24/2025 Travel 01/22/2025 2:54 PM CDT - 01/22/2025 11:59 PM CDT Hospital Encounter [facility] [address] [place] [address] 01/22/2025 Travel 01/17/2025 2:59 PM CDT - 01/17/2025 11:59 PM CDT Hospital Encounter [facility] [address] [place] [address] 01/17/2025 Travel 01/15/2025 2:54 PM CDT - 01/15/2025 11:59 PM CDT Hospital Encounter [facility] [address] [place] [address] 01/15/2025 Travel 2025 Telephone [facility] [address] [place] [address] Samia Burger MD Follow Up 2025 Telephone [facility] [address] [place] [address] Samia Burger MD Follow Up 01/10/2025 6:53 AM CDT - 01/10/2025 11:59 PM CDT Hospital Encounter [facility] [address] [place] [address] 01/09/2025 1:56 PM CDT - 01/09/2025 11:59 PM CDT Hospital Encounter [facility] [address] [place] [address] Darshana Mcguire MD Coronary artery disease involving ho-chunk coronary artery of ho-chunk heart without angina pectoris; Coronary artery disease involving ho-chunk coronary artery without angina pectoris, unspecified whether ho-chunk or transplanted heart 01/09/2025 Travel 01/05/2025 1:35 PM CDT Office Visit [facility] [address] [place] [address] Samia Burger MD Diabetes 01/05/2025 Travel 12/28/2024 Orders Only [facility] Scanner 1 scan: (1-Ord) [facility] OD, 12/28/2024 12/25/2024 1:00 PM CDT Office Visit [facility] [address] [place] [address] Patricia Bañuelos MD Hospital F/U (Follow up from invasive coronary angiogram ) 12/25/2024 Travel 12/25/2024 Patient Outreach [facility] [address] [place] [address] Kamla Lagunas, VALERIY Primary RN Care Management; Hospital F/U (LACE 38) 12/21/2024 9:35 AM CDT - 12/22/2024 11:54 AM CDT Hospital Encounter [facility] [address] [place] [address] Kumar Clakre MD Voudris, Konstantinos, MD, PhD Coronary artery disease involving ho-chunk coronary artery without angina pectoris, unspecified whether ho-chunk or transplanted heart (Primary Dx); Coronary artery disease involving ho-chunk coronary artery of ho-chunk heart without angina pectoris Discharge Disposition: Home Self Care 12/21/2024 Travel 12/14/2024 2:40 PM CDT Office Visit [facility] [address] [place] [address] Jorge Aaron MD Preoperative Exam (12/21 /Angiogram/ABNW ) 12/14/2024 Travel 12/12/2024 2:15 PM CDT Orders Only [facility] [address] [place] [facility] [address] [place] Lab 12/12/2024 Orders Only [facility] Scanner 1 scan: (1-Ord) [facility], 12/12/2024 12/12/2024 Travel 12/08/2024 9:30 AM CDT Office Visit [address] [place] [address] [place] [address] Kumar Clarke MD Follow Up (zain per Dr Mooney - SEE TELEPHONE ENCOUNTER - Jaw pain and lightheadedness/PT states feeling good. Discuss his jaw pain and lightheadedness. ) 12/08/2024 Travel 12/04/2024 Telephone [facility] [address] [place] [address] Glen Mooney MD Questions (Stents ) from Last 3 Months Immunizations Immunization Administration Dates Next Due COVID-19 VACCINE SPIKEVAX (M ODERNA 50MCG/0.5ML) 12YO+ PFS 01/05/2025,06/30/2024 COVID-19 vaccine (Pfizer-Bio NTech 30mcg/0.3mL) 12YO+ BIVALENT PF, MDV 03/09/2023 COVID-19 vaccine (Pfizer-Bio NTech 30mcg/0.3mL) 12YO+ LUZ-SUCROSE PF, MDV 03/26/2022 COVID-19 vaccine (Pfizer-Bio NTech 30mcg/0.3mL) PF, MDV 10/31/2020,10/10/2020 Influenza Virus, Unspecified 09/29/2021 Influenza, High-dose Inactivated 019,06/29/2018,07/15/2017,06/15,06/22/2014 Influenza, High-dose Quadriv alent Inactivated 07/24/2022,07/16/2020 Influenza, IIV3 (Age 6-35 mos) 06/23/2011 Influenza, IIV3 (Age >=3 years) 06/08/20 12,07/19/2009,06/20/2006,07/10,08/27/2003 Influenza, IIV4 06/23/2011 Influenza, Inactivated AIIV4 (Age 65+ Years) Preserv Free 06/11/2023,05/27/2021 Influenza, Inactivated IIV3 (Age 65+ Years) Preserv Free 06/30/2024 Pneumococcal Poly,23-Valent (Pneumovax) 09/25/2008,08/24/2002 Pneumococcal conj 13-Valent (Prevnar 13) 06/13/2015 RSV, Bivalent Vaccine Recons tituted (Abrysvo 120MCG/0.5mL) 07/17/2024 Td (Age >=7 Years) 11/27/2005 Td, Preservative Free (age >= 7 Years) 6 Tdap 02/03/2016 Zoster (Shingrix-RZV, recombinant) 07/17/2024 Zoster (Zostavax-ZVL, live) 01/31/2010 Family History Medical History Relation Name Comments Good Health Brother Good Health Sister 1 Good Health Sister 2 Diabetes Sister 3 Relation Name Status Comments Brother Father (Age 76) PA Mother (Age 86) Paternal Uncle PA Sister 1 Sister 2 Sister 3 Social History Tobacco Use Types Packs/Day Years Used Date Smoking Tobacco: Former Cigarettes 1 20.2 1 967 - 12/07/1986 Smokeless Tobacco: Never Tobacco Cessation:Counseling Given: Yes Alcohol Use Standard Drinks/Week Comments Not Currently 0 (1 standard drink = 0.6 oz pur e alcohol) 1 beer every week PHQ-2 Answer Date Recorded PHQ-2 TOTAL SCORE 0 06/30/2024 Social Connections Answer Date Recorded Do you often feel lonely or isolated from those around you? 0 10/06/2024 Financial Resource Strain Answer Date R ecorded Difficulty of Paying Living Expenses 3 10/06/2024 Difficulty of Paying Living Expenses Not on file 10/06/2024 Food Insecurity Answer Date Recorded Do you worry your food will run out before you are able to buy more? 1 10/06/2024 Transportation Needs Answer Date Record ed Does lack of transportation keep you from medica l appointments? 1 10/06/2024 Does lack of transportation keep you from work, meetings or getting things that you need? 1 10/06/2024 Housing Stability Answer Date Recorded What is your housing situation today? 1 10/06/2024 Interpersonal Safety Answer Date Record ed Are you being hit, kicked, p ushed or yelled at (see row info)? No 12/21/2024 Interpersonal Safety Abuse 12 - 18 Not on file 12/21/2024 Interpersonal Safety Ambulatory Vulnerability No t on file 12/21/2024 Utilities Answer Date Recorded Do you have trouble paying f or utilities (for example, heat, electricity, water, phone)? 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 Not on file Not on file Not on file Obstetrics History Last Filed Vital Signs Vital Sign Reading Time Taken Comments Blood Pressure 100/72 02/02/2025 2:43 PM CDT Pulse 82 02/02/2025 2:43 PM CDT Temperature 36.4 C (97.5 F) 12/22/2024 8:50 AM CDT Respiratory Rate 18 01/09/2025 3:00 PM CDT Oxygen Saturation 99% 02/02/2025 2:43 PM CDT Inhaled Oxygen Concentration - - Weight 65.5 kg (144 lb 6.4 oz) 02/02/2025 2:43 P M CDT Height 165 cm (5' 4.96) 02/02/2025 2:43 PM CDT Body Mass Index 24.06 02/02/2025 2:43 PM CDT Plan of Treatment Upcoming Encounters Date Type Department Care Team (Late st Contact Info) Description 02/13/2025 2:00 PM CDT Orders Only [facility] [address] [place] [facility] [address] [place] 04/11/2025 9:35 AM CDT Office Visit [facility] [address] [place] [address] Samia Burger MD [address] [place] [address] 07/06/2025 9:30 AM CDT Office Visit [facility] [address] [place] [address] Kristi Mcqueen PA [address] [place] [address] Health Maintenance Due Date Last Done Comments Zoster (shingles) series for age 50+ (3 of 3) 09/11/2024 07/17/2024, 01/31/2010 Medicare Wellness for age 65+ 07/01/2025 06/30/2024, 03/09/2023, 11/14/2021, Additional history exists Depression screening for age 12+ 07/03/2025 07/03/2024, 07/03/2024, 06/30/2024, Additional history exists BMI (ht and wt on same day) for age 18+ 02/02/2026 02/02/2025, 12/14/2024, 12/08/2024, Additional history exists Tetanus booster 02/02/2026 02/03/2016, 01/18, 11/27/2005, Additional history exists Pneumococcal series for age 50+ Completed 06/13/2015, 09/25/2008, 08/24/2002 Tdap Completed 02/03/2016, 05/21 (Completed outside of [facility]) Influenza Vaccine Completed 06/30/2024, , 09/29/2021, Additional history exists RSV vaccine for adults or Completed 07/17/2024 COVID-19 vaccine series Completed 01/06/20, 06/30/2024, 03/25/2024, Additional history exists Hepatitis B series for 19+ Aged Out N o longer eligible based on patient's age to complete this topic Procedures Procedure Name Priority Date/Time Associated Diagnosis Comments SCAN-CARDIAC REHABILITATION 01/24/2025 2:58 PM CDT SCAN-CARDIAC REHABILITATION 01/22/2025 2:59 PM CDT SCAN-CARDIAC REHABILITATION 01/17/2025 3:04 PM CDT SCAN-CARDIAC REHABILITATION 01/15/2025 2:59 PM CDT SCAN-CARDIAC REHABILITATION 01/10/2025 7:05 AM CDT SCAN-CARDIAC REHABILITATION 01/09/2025 2:25 PM CDT BASIC METABOLIC PANEL Routine 01/05/2025 1:16 PM CDT Uncontrolled type 2 diabetes mellitus with hypoglycemia without coma (HC) CBC WITH AUTO DIFFERENTIAL Routine 01/05/2025 1:16 PM CDT Uncontrolled type 2 diabetes mellitus with hypoglycemia without coma (HC) HEMOGLOBIN A1C MONITORING (POCT) Routine 01/05/2025 1:14 PM CDT Uncontrolled type 2 diabetes mellitus with hypoglycemia without coma (HC) SCAN-EYE EXAM 12/28/2024 12:00 AM CDT CBC W PLT NO DIFF Early AM 12/22/2024 8:1 7 AM CDT BASIC METABOLIC PANEL Early AM 12/22/2024 8:16 AM CDT LIPID PANEL Early AM 12/22/2024 8:16 AM CDT SCAN-CARDIAC STRIP 12/21/2024 9: 48 PM CDT GLUCOSE METER Timed 12/21/2024 8:16 PM CDT HCHG ACTIVATED CLOTTING TM CV Timed 12/21/2024 4:48 PM CDT HCHG ACTIVATED CLOTTING TM CV Timed 12/21/2024 4:33 PM CDT CVL CORONARY ANGIOGRAM POSS PCI Routine 12/21/2024 3:54 PM CDT Coronary artery disease involving ho-chunk coronary artery of ho-chunk heart without angina pectoris Coronary artery disease involving ho-chunk coronary artery without angina pectoris, unspecified whether ho-chunk or transplanted heart GLUCOSE METER Timed 12/21/2024 3:29 PM CDT GLUCOSE METER Timed 12/21/2024 3:04 PM CDT GLUCOSE METER Timed 12/21/2024 1:38 PM CDT EXTRA TUBE GOLD/SST Today 12/21/2024 1 0:07 AM CDT BASIC METABOLIC PANEL ZAIN 12/21/2024 10:01 AM CDT BASIC METABOLIC PANEL Routine 12/12/2024 2:17 PM CDT Coronary artery disease involving ho-chunk coronary artery of ho-chunk heart without angina pectoris Preprocedural cardiovascular examination CBC W PLT NO DIFF Routine 12/12/2024 2:1 7 PM CDT Coronary artery disease involving ho-chunk coronary artery of ho-chunk heart without angina pectoris Preprocedural cardiovascular examination LIPID PANEL W REFLEX MEASURED LDL Routine 12/12/2024 2:17 PM CDT Coronary artery disease involving ho-chunk coronary artery of ho-chunk heart without angina pectoris Preprocedural cardiovascular examination AST (SGOT) Routine 12/12/2024 2:17 PM CDT Coronary artery disease involving ho-chunk coronary artery of ho-chunk heart without angina pectoris Preprocedural cardiovascular examination ALT (SGPT) Routine 12/12/2024 2:17 PM CDT Coronary artery disease involving ho-chunk coronary artery of ho-chunk heart without angina pectoris Preprocedural cardiovascular examination SCAN-EYE EXAM 12/12/2024 12:00 AM CDT EKG 12 LEAD Today 12/08/2024 9:21 AM CDT History of non-ST elevation myocardial infarction (NSTEMI) from Last 3 Months Results * SCAN-CARDIAC REHABILITATION (01/24/2025 2:58 PM CDT) Only the most recent of6 resultswithin the time period is included. us Scanner OTHER Final Result * (ABNORMAL) CBC AND DIFFERENTIAL (01/05/2025 1:16 PM CDT) Pathologist [facility] WHITE BLOOD CELL COUNT 4.7 3.8 - 10.8 Thousand/u L [facility] RED BLOOD CELL COUNT 3.71(L) 4.20 - 5.80 Million/uL [facility] HEMOGLOBIN 11.3(L) 13.2 - 17.1 g/dL [facility] HEMATOCRIT 34.6(L) 38.5 - 50.0 % [facility] MCV 93.3 80.0 - 100.0 fL [facility] MCH 30.5 27.0 - 33.0 pg [facility] MCHC 32.7 32.0 - 36.0 g/dL [facility] Comment: For adults, a slight decrease in the calculated MCHC value (in the range of 30 to 32 g/dL) is most likely not clinically significant; however, it should be interpreted with caution in correlation with other red cell parameters and the patient's clinical condition. RDW 12.7 11.0 - 15.0 % [facility] PLATELET COUNT 200 140 - 400 Thousand/u L [facility] MPV 10.8 7.5 - 12.5 fL [facility] ABSOLUTE NEUTROPHILS 3,267 1,500 - 7,800 cells/uL [facility] ABSOLUTE LYMPHOCYTES 799(L) 850 - 3,900 cells/uL [facility] ABSOLUTE MONOCYTES 484 200 - 950 cells/uL [facility] ABSOLUTE EOSINOPHILS 132 15 - 500 cells/uL [facility] ABSOLUTE BASOPHILS 19 0 - 200 cells/uL [facility] NEUTROPHILS 69.5 % [facility] LYMPHOCYTES 17.0 % [facility] MONOCYTES 10.3 % [facility] EOSINOPHILS 2.8 % [facility] BASOPHILS 0.4 % [facility] Blood BLOOD SPECIMEN / Unknown 01/05/2025 1:16 PM CDT 01/05/2025 1:20 PM CDT Narrative [facility] - 01/06/2025 4:05 AM CDT FASTING:NO FASTING: NO us Samia Burger MD HEMATOLOGY Final Resul t [facility] [address] [place] [address], [facility] [address] [place] [address] * (ABNORMAL) BASIC METABOLIC PANEL (01/05/2025 1:16 PM CDT) Only the most recent of4 resultswithin the time period is included. GLUCOSE 167(H) 65 - 139 mg/dL [facility] Comment: Non-fasting reference interval UREA NITROGEN (BUN) 26(H) 7 - 25 mg/dL [facility] CREATININE 1.39(H) 0.70 - 1.22 mg/dL [facility] EGFR 50(L) > OR = 60 mL/min/1.7 3m2 [facility] BUN/CREATININE RATIO 19 6 - 22 (calc) [facility] SODIUM 141 135 - 146 mmol/L [facility] POTASSIUM 4.3 3.5 - 5.3 mmol/L [facility] CHLORIDE 108 98 - 110 mmol/L [facility] CARBON DIOXIDE 23 20 - 32 mmol/L [facility] ELECTROLYTE BALANCE 10 7 - 17 mmol/L (calc) [facility] CALCIUM 9.3 8.6 - 10.3 mg/dL [facility] Blood BLOOD SPECIMEN / Unknown 01/05/2025 1:16 PM CDT 01/05/2025 1:20 PM CDT Narrative [facility] - 01/06/2025 4:49 AM CDT FASTING:NO FASTING: NO Samia Burger MD CHEMISTRY Final Resul t [facility] [address] [place] [address], [place] [phone] [facility] [address] [place] [address] * (ABNORMAL) POCT Hemoglobin A1C Monitoring (01/05/2025 1:14 PM CDT) Pathologist [facility] POC HEMOGLOBIN A1C 7.3(H) <6.0 % OF TOTAL HGB [facility] Comment: Any point of care results exhibiting inconsistency with the patient's clinical status should be repeated using a different testing method. Blood BLOOD SPECIMEN / Unknown 01/05/2025 1:14 PM CDT 01/05/2025 1:15 PM CDT Narrative [facility] - 01/05/2025 1:41 PM CDT FASTING:UNKNOWN FASTING: UNKNOWN Samia Burger MD CHEMISTRY Final Resul t Performing Organization Address City/[facility] Co de Phone Number [facility] [address] [place] [address], [place] [phone] [facility] [address] [place] [address] * SCAN-EYE EXAM (12/28/2024 12:00 AM CDT) us Scanner OTHER Final Result * (ABNORMAL) CBC with Platelets no Differential (12/22/2024 8:17 AM CDT) Only the most recent of2 resultswithin the time period is included. WHITE BLOOD COUNT 7.9 4.5 - 11.0 thou/cu mm 12/22/2024 9:34 AM CDT [facility] TRA LABORATORY RED BLOOD COUNT 4.25(L) 4.30 - 5.90 mil/cu mm 12/22/2024 9:34 AM CDT [facility] TRAL [facility] HEMOGLOBIN 12.8(L) 13.5 - 17.5 g/dL 12/22/2024 9:34 AM CDT [facility] HEMATOCRIT 39.4 37.0 - 53.0 % 12/22/2024 9:34 AM CDT [facility] MCV 93 80 - 100 fL 12/22/2024 9:34 AM CDT [facility] MCH 30.1 26.0 - 34.0 pg 12/22/2024 9:34 AM CDT [facility] MCHC 32.5 32.0 - 36.0 g/dL 12/22/2024 9:34 AM CDT [facility] RDW 14.4 11.5 - 15.5 % 12/22/2024 9:34 AM CDT [facility] PLATELET COUNT 204 140 - 440 thou/cu mm 12/22/2024 9:34 AM CDT [facility] MPV 10.4 6.5 - 11.0 fL 12/22/2024 9:34 AM CDT [facility] NRBC 0.0 % 12/22/2024 9:34 AM CDT [facility] ABS NRBC 0.0 thou /cu mm 12/22/2024 9:34 AM T [facility] Blood BLOOD SPECIMEN / Unknown Butterfly / Unknown 12/22/2024 8:17 AM CDT 12/22/2024 9:27 AM CDT us Darshana Mcguire MD HEMATOLOGY Fin al Result [facility] [address] [place] [address], * Lipid Panel (12/22/2024 8:16 AM CDT) Pathologist [facility] CHOLESTEROL,TOTAL 104 100 - 199 mg/dL 12/22/2024 9:55 AM CDT [facility] Comment: Cholesterol, Total Reference Ranges Desirable <200 mg/dL Borderline 200-239 mg/dL High >=240 mg/dL TRIGLYCERIDES 93 <150 mg/dL 12/22/2024 9:55 AM CDT [facility] HDL CHOLESTEROL 46 >40 mg/dL 9:55 AM CDT [facility] NON-HDL CHOLESTEROL 58 <145 mg/dl 12/22/2024 9:55 AM CDT [facility] TRA [facility] CHOL/HDL RATIO 2.26 <4.50 12/22/2024 9:55 AM CDT [facility] LDL CHOLESTEROL 39 <=130 mg/dL 12/22/2024 9:55 AM CDT [facility] VLDL CHOLESTEROL 19 <=30 mg/dL 12/22/2024 9:55 AM CDT [facility] PROVIDER ORDERED STATUS RANDOM 12/22/2024 9:55 AM CDT [facility] Blood BLOOD SPECIMEN / Unknown Butterfly / Unknown 12/22/2024 8:16 AM CDT 12/22/2024 9:27 AM CDT Darshana Mcguire MD CHEMISTRY Fin al Result [facility] [address] [place] [address], * SCAN-CARDIAC STRIP (12/21/2024 9:48 PM CDT) us Scanner OTHER Final Result * (ABNORMAL) GLUCOSE METER (12/21/2024 8:16 PM CDT) Only the most recent of4 resultswithin the time period is included. [facility] GLUCOSE METER 188(H) 65 - 100 mg/dL 12/21/2024 8:16 PM CDT [facility] Blood BLOOD SPECIMEN / Unknown 12/21/2024 8:16 PM CDT 12/21/2024 8:16 PM CDT Sage Verma MD, PhD CHEMISTRY Fin al Result [facility] [address] [place] [address], * (ABNORMAL) ACTIVATED CLOTTING TIME [id number] ACT (12/21/2024 4:48 PM CDT) Only the most recent of2 resultswithin the time period is included. ACTIVATED CLOTTING TIME, POCT 264(H) 74 - 125 sec 12/22/2024 4:18 PM CDT [facility] Blood BLOOD SPECIMEN / Unknown 12/21/2024 4:48 PM CDT 12/22/2024 4:18 PM CDT Sage Verma MD, PhD HEMATOLOGY Fin al Result Performing Organization Address City/[facility] Co de Phone Number [facility] [address] [place] [address], * CVL CORONARY ANGIOGRAM POSS PCI (12/21/2024 3:54 PM CDT) Anatomical Region Laterality Modality X-Ray Angiograph y, X-Ray Angiography 12/21/2024 3:5 4 PM CDT Narrative Transcriptions Sage Verma MD, PhD - 12/21/2024 5:19 PM CDT [facility] Cardiac Catheterization Report Name: JERMAIN MARKS Event Date: 12/21/2024 15:54 Excellian ID #: [id number] SCOTT #: [id number] Patient Class: Inpatient Diagnostic Physician: SAGE VERMA [facility] Interventional Physician: SAGE VERMA [facility] Referring Physician: Date: 1940 Gender: Male Age: 84 Summary/Conclusions PRESENTATION / INDICATIONS * Unstable angina * CAD s/p PCI of RCA VASCULAR ACCESS * Using ultrasound guidance and a percutaneous technique, the right radialartery was accessed. Ultrasound was used to confirm vessel patency,localizing needle into the lumen of the vessel. An image was saved for themedical record. DIAGNOSTIC - CORONARY * Multivessel coronary disease in a right dominant system * Patent previously stents in the mid and distal RCA. Mod-severe proximalRCA disease. Distal vessel has mild-moderate diffuse disease. * 30% distal left main stenosis * Diffuse LAD disease with a 60% stenosis in the proximal segment. * Diffuse Circumflex disease with a 90% stenosis in the proximal OM1(culprit for symptoms) INTERVENTION * Successful IVUS guided stenting (drug eluting) of the proximal 1stobtuse marginal with a [id number] [place] stent. Post dilated with [id number] [place] balloon. Post intervention IVUS revealed good stentexpansion and apositon. * Intracoronary ultrasound was used for lesion assessment DIAGNOSTIC SUMMARY ? 30% stenosis in the LMCA ? 50% stenosis in the Mid LAD ? 50% stenosis in the 1st Diagonal ? 90% stenosis in the 1st Marginal ? 60% stenosis in the Proximal RCA ? 0% in-stent stenosis in the Mid RCA ? 0% in-stent stenosis in the Distal RCA INTERVENTION ? 2mm x 12mm Balloon, IVUS, 2.5mm x 18mm Drug Eluting Stent, and 2.5mm x12mm Balloon to 1st Marginal, post stenosis 0% RECOMMENDATIONS & PLAN * Medical Rx - Aspirin: 81 mg daily * Plavix for 1 year * Optimize risk factors and medications: HDL > 45 ; LDL < 70 ;Triglycerides < 100 * Continue medical therapy for diffuse CAD. * Follow up with primary physician * Follow up with cannon pinion adjuster Consent & [place] Protocol The risks, benefits, and alternatives of the procedure were discussed withthe patient and written informed consent was obtained. [place] protocol was followed. TIME OUT conducted just prior tostarting procedure confirmed patient identity, site/side, procedure,patient position, and availability of correct equipment and implants (ifapplicable). Staff Name Title Sage Verma Diagnostic Employee Relations Manager Ashleigh Flynn RN Nurse Sophia Sprague CVT Scrub Ceasar Cuevas CVT Monitor Ata, Tia CVT Gas Engine Operator Darshana Mcguire Fellow Sage Verma Stitcher Operator Procedures ? Ultrasound Guided Vascular Access ? Coronary Angiogram ? Stent Placement, Drug Eluting [PCI] ? Coronary Ultrasound Diagnostic Findings * Left Main Coronary Artery ? 30% stenosis in the LMCA. * Left Anterior Descending ? 50% stenosis in the Mid LAD. ? 50% stenosis in the 1st Diagonal. * Circumflex ? 90% stenosis in the 1st Marginal. * Right Coronary Artery ? 60% stenosis in the Proximal RCA. ? 0% in-stent stenosis in the Mid RCA. ? 0% in-stent stenosis in the Distal RCA. Lesion Information Lesion # Vessel Segment Lesion Length Lesion Details LMCA 1 1st Marginal Proximal RCA Mid RCA Distal RCA Mid LAD 1st Diagonal Hemodynamics State: Baseline Pressures (mmHg) Site Systolic Diastolic End Diastolic A Wave V Wave Mean AO 104 48 63 Interventional Results * Circumflex ? Intervention to the 1st Marginal 90% lesion with a final stenosis of0% using a 2mm x 12mm Balloon, IVUS, 2.5mm x 18mm Drug Eluting Stent,and a 2.5mm x 12mm Balloon. Interventional Devices Lesion # Vessel Segment Type Name Max Pressure 1 1st Marginal Balloon BLLN EUPHORA NC RX 2MM X 12MM 1 1st Marginal IVUS CATH IVUS [place] [place] 1 1st Marginal Drug Eluting Stent CARRIE YARA Haskell RX [id number] 1 1st Marginal Balloon BLLN EU[place]A NC RX 2.5MM X 12MM Procedure Details Estimated Blood Loss: < 30 ml Specimen Collected: None Level of Sedation Achieved: Moderate Procedure Start: 15:54 Procedure End: 17:02 Procedure Time: 68 min Fluoroscopy Time: 20.3 min Cumulative Air Kerma: 1287 mGy DAP: 4704 uGy/M2 Contrast: Omnipaque (low-osmolar), 110 ml Physiologic Data Weight: 64.9 kg BSA: 1.71 m2 Vascular Access Time Access Sheath Size 15:54 Right Radial Artery, sheath inserted Medications Ordered and Administered Start Time Stop Time Medication Dose Units Route Ordered By Given By 15:44 Fentanyl 50 mcg IV Sage Verma Katlyn RN 15:44 Versed 1 mg IV Sage Verma Katlyn RN 15:54 1% Lidocaine 1 ml Subcut Sage Verma Jaskanwal 15:54 Versed 0.5 mg IV Sage Verma Katlyn RN 15:54 Fentanyl 25 mcg IV Sage Verma Katlyn RN 15:55 Verapamil 3 mg IA Sage Verma Jaskanwal 16:00 Heparin 5000 units IV Sage Verma KatlynRN 16:17 Fentanyl 25 mcg IV Sage Verma Katlyn RN 16:17 Versed 0.5 mg IV Sage Verma Katlyn RN 16:25 Heparin 2000 units IV Sage Verma KatlynRN 16:25 Plavix 600 mg PO Sage Verma Katlyn RN 16:31 Versed 0.5 mg IV Sage Verma Katlyn RN 16:31 Fentanyl 25 mcg IV Sage Verma Katlyn RN 16:34 O2 2 l per min Nasal cannula Sage Verma Katlyn RN 16:47 Fentanyl 25 mcg IV Sage Verma Katlyn RN 16:47 Versed 0.5 mg IV Sage Verma Katlyn RN 16:49 Heparin 2000 units IV Sage Verma KatlynRN 16:55 Nitroglycerin 100 mcg IC Sage Verma Jaskanwal 16:56 Neosynephrine (Phenylephrine) 100 mcg IV Karan Verma Katlyn RN I personally monitored the patient?s conscious sedation during theprocedure. Conscious sedation starts with the first sedation medication dose ofFentanyl or Versed and ends when the procedure is completed, the patientis stable for recovery status, and the physician or other qualified healthcare professional providing the sedation ends personal [id number] time with the patient. The medications listed above were verbally ordered by me and read back tome as documented above. Refer to the procedure log report for additional case details. electronically signed on 12/21/2024 5:19:42 PM with status of Final Sage Verma MD [facility] [address] [id number] (p) [phone](f) Kumar Clarke MD CV IMAGING Edited Re sult - Final * EXTRA TUBE GOLD/SST (12/21/2024 10:07 AM CDT) Blood BLOOD SPECIMEN / Unknown Non-Lab Venipuncture / Unknown 12/21/2024 10:07 AM CDT 12/21/2024 10:17 AM CDT Kumar Clarke MD LABORATORY Final Res ult [facility] [address] [place] [address], [place] * LIPID PANEL W REFLEX MEASURED LDL (12/12/2024 2:17 PM CDT) [facility] CHOLESTEROL, TOTAL 129 <200 mg/dL [facility] HDL CHOLESTEROL 51 > OR = 40 mg/dL [facility] TRIGLYCERIDES 94 <150 mg/dL [facility] LDL-CHOLESTEROL 60 mg/dL (calc) [facility] Comment: Reference range: <100 Desirable range <100 mg/dL for primary prevention; <70 mg/dL for patients with CHD or diabetic patients with > or = 2 CHD risk factors. LDL-C is now calculated using the Jaxson-Samm calculation, which is a validated novel method providing better accuracy than the Friedewald equation in the estimation of LDL-C. Jaxson EVANGELISTA et al. MAY. 2013;310(19): 7474-7811 (http://education.Pharma Two B.Synthelis/faq/OZV044) CHOL/HDLC RATIO 2.5 <5.0 (calc) [facility] NON HDL CHOLESTEROL 78 <130 mg/dL (calc) [facility] Comment: For patients with diabetes plus 1 major ASCVD risk factor, treating to a non-HDL-C goal of <100 mg/dL (LDL-C of <70 mg/dL) is considered a therapeutic option. Blood BLOOD SPECIMEN / Unknown 12/12/2024 2:17 PM CDT 12/12/2024 2:18 PM CDT Kumar Clarke MD CHEMISTRY Final Res ult Performing Organization Address City/[facility]/ZIP Co de Phone Number [facility] [address] [place] [address], [place] [phone] [facility] [address] [facility] [address] [place] [address] * ALT (SGPT) (12/12/2024 2:17 PM CDT) ALT 22 9 - 46 U/L [facility] Blood BLOOD SPECIMEN / Unknown 12/12/2024 2:17 PM CDT 12/12/2024 2:18 PM CDT Kumar Clarke MD CHEMISTRY Final Res ult Performing Organization Address [facility]/ZIP Co de Phone Number [facility] [address] [facility] [facility] [place] [address], [place] [phone] [facility] [address] [facility] [place] [address] * AST (SGOT) (12/12/2024 2:17 PM CDT) AST 18 10 - 35 U/L [facility] Blood BLOOD SPECIMEN / Unknown 12/12/2024 2:17 PM CDT 12/12/2024 2:18 PM CDT Kumar Clarke MD CHEMISTRY Final Res ult [facility] [address] [place] [address], [place] [phone] [facility] [address] [place] [address] * SCAN-EYE EXAM (12/12/2024 12:00 AM CDT) us Scanner OTHER Final Result * EKG 12 LEAD (12/08/2024 9:21 AM CDT) Interpretation Normal sinus rhythm Normal ECG No previous ECGs available Ventricular Rate 80 BPM Atrial Rate 80 BPM P-R Interval 164 ms QRS Duration 90 ms QT 370 ms QTc 426 ms P Finley 76 degrees R Finley 72 degrees T Finley 82 degrees 12/08/2024 9:21 AM CDT 12/12/2024 8:13 AM CDT us Kumar Clarke MD EKG ORD Final Res ult from Last [address] [place] [address] MEDICARE PART B HB ONLY Intervention Insights PB ONLY MEDICA PRIME SOLUTION HB MEDICARE PART A HB ONLY Advance Directives * Full Code (Latest Code Status on File) Date Activated Date Inactivated Comments 12/21/2024 5:20 PM 12/22/2024 2:01 PM Question Answer Comments Code Status Discussion: Unable to Assess Preferences, Provider to review later Care Teams Laborer Golf Course Relationship Specialty Start Date End Date Samia Burger MD [address] [place] [address] PCP - General Family Practice 03/18/17 Irvin Rice MD [address] [place] [address] Orthopedics Surgery - Orthopedics 08/12/21 Robert Silva MD [address] [place] [address] Surgery - Urology 07/03/24
[2025-02-10 12:08] LABS: Basophils Absolute Auto 0.02 K/uL (0.00-0.30); Basophils Percent Auto 0.3 % (0.0-3.0); Eosinophils Percent Auto 3.3 % (0.0-7.0); Hematocrit 33.7 % (37.0-53.0); Hemoglobin* 11.1 gm/dL (13.5-17.5); Immature Granulocytes Abs Auto 0.01 K/uL (0.00-0.30); Immature Granulocytes Pct Auto 0.2 %; Lymphocytes Percent Auto 13.6 % (20-44); Mean Corpuscular HGB Conc 33 gm/dL (32-36); Mean Corpuscular Hemoglobin 31 pg (26-34); Mean Corpuscular Volume 94 fL (80-100); Neutrophils Absolute Auto 4.36 K/uL (1.7-7.0); Neutrophils Percent Auto 71.6 % (42.0-72.0); Platelet Count* 188 K/uL (140-440); RDW Coefficient of Variation % 14.1 % (11.5-15.5); Red Blood Count 3.58 m/uL (4.30-5.90); White Blood Count* 6.09 K/uL (4.50-11.00)
[2025-02-10 12:12] LABS: Slide Review Reflex No
[2025-02-10 12:13] LABS: Chloride* 104 mmol/L (96-114); Potassium* 4.7 mmol/L (3.6-5.1); Sodium* 138 mmol/L (135-149)
[2025-02-10 12:16] LABS: Anion Gap 9 mEq/L (7-15); Blood Urea Nitrogen* 36 mg/dL (7-30); Calcium* 9.4 mg/dL (8.4-10.6); Carbon Dioxide* 25 mmol/L (20-32); Creatinine* 1.3 mg/dL (0.5-1.5); Estimated Glomerular Filt Rate 54 ml/min; Glucose* 244 mg/dL (60-115)
== END 2025-02-10 13:11 | disposition home or self-care (01) ==
PROVIDERS: Emergency Provider Emergency Medicine Emergency Medical Services; PCP Family Medicine
DX: R42 Dizziness and giddiness (principal)
CPT/HCPCS: 36415; 80048; 84484; 85025; 93005; 99284

== ENCOUNTER 2025-07-13 21:46 | Emergency (ER) | payer MEDICARE, OTHER, SELFPAY ==
--- OUTSIDE RECORDS SUMMARY | 2025-07-13 21:49 | XMS_ITS | Encounter Summary ---
Author Organization [facility] Address [address] [place] [address] Phone Care Team Providers Care Operation Supervisor Name Role Phone Samia Burger MD Primary Care Provider [phone] Encounter Details Date Type Department Care Team (Late st Contact Info) Description 08/21/2024 Orders Only [facility] [place] [address] [place] [address] Dmitry Arboleda MD [address] [place] [address] Stage 3a chronic kidney disease (HCC) Social History Tobacco Use Types Packs/Day Years Used Date Smoking Tobacco: Former Cigarettes 1 20.2 1 967 - 1987 Smokeless Tobacco: Never Alcohol Use Standard Drinks/Week Comments Yes 7 (1 standard drink = 0.6 oz pur e alcohol) Sex and Gender Information Value Date Recorded Sex Assigned at Not on file Legal Sex Male 11:45 AM EDT Gender Identity Not on file Sexual Orientation Not on file documented as of this encounter Plan of Treatment Upcoming Encounters Date Type Department Care Team (Late st Contact Info) Description 10/01/2025 10:00 AM PANELBOARD OPERATOR Office Visit [facility] [address] [place] [phone] Dmitry Arboleda MD [address] [place] [address] documented as of this encounter Procedures Procedure Name Priority Date/Time Associated Diagnosis Comments URINE ALBUMIN / CREATININE RATIO Routine 09/07/2024 6:14 AM PANELBOARD OPERATOR Stage 3a chronic kidney disease (HCC) HEMOGLOBIN Routine 09/07/2024 6:14 AM PANELBOARD OPERATOR Stage 3a chronic kidney disease (HCC) PTH, INTACT Routine 09/07/2024 6:14 AM PANELBOARD OPERATOR Stage 3a chronic kidney disease (HCC) RENAL FUNCTION PANEL Routine 09/07/2024 6:14 AM PANELBOARD OPERATOR Stage 3a chronic kidney disease (HCC) documented in this encounter Results * Urine Albumin / Creatinine Ratio (09/07/2024 6:14 AM PANELBOARD OPERATOR) Creatinine, Ur 98 20 - 320 mg/dL See order comments Urine Microalbumin 1.9 See Note: mg/dL See order comments Comment: Reference Range: Reference Range Not established Microalb/Creat Ratio 19 <30 mg/g creat See order comments Comment: The ADA defines abnormalities in albumin excretion as follows: Albuminuria Category Result (mg/g creatinine) Normal to Mildly increased <30 Moderately increased 30-299 Severely increased > OR = 300 The ADA recommends that at least two of three specimens collected within a 3-6 month period be abnormal before considering a patient to be within a diagnostic category. Urine specimen (specimen) Urine specimen obtained by clean catch procedure / Unknown 09/07/2024 6:14 AM PANELBOARD OPERATOR 09/07/2024 6:14 AM PANELBOARD OPERATOR Narrative Resulting Agency Comment Performing Organization Information: Site ID: [id number] Name: [facility] Address: [address] [place] [phone] Director: Deon Ann us Dmitry Arboleda MD LAB URINE ORDERABLES Final Re sult [facility] See order comments [place] [address] * PTH, intact (09/07/2024 6:14 AM PANELBOARD OPERATOR) Parathyroid Hormone, Intact 59 16 - 77 pg/mL See order comments Comment: Interpretive Guide Intact PTH Calcium ------- Normal Parathyroid Normal Normal Hypoparathyroidism Low or Low Normal Low Hyperparathyroidism Primary Normal or High High Secondary High Normal or Low Tertiary High High Non-Parathyroid Hypercalcemia Low or Low Normal High Blood specimen (specimen) Venous blood / Unknown 09/07/2024 6:14 AM PANELBOARD OPERATOR 09/07/2024 6:14 AM PANELBOARD OPERATOR Narrative Resulting Agency Comment Performing Organization Information: Site ID: Name: [facility] Address: [address] [place] [phone] Director: Deon Ann Dmitry Arboleda MD LAB BLOOD ORDERABLES Final Re sult Performing Organization Address [facility] de Phone Number [facility] See order comments [place] [address] * (ABNORMAL) Hemoglobin (09/07/2024 6:14 AM PANELBOARD OPERATOR) Hemoglobin 12.3(L) 13.2 - 17.1 g/dL See order comments Blood specimen (specimen) Venous blood / Unknown 09/07/2024 6:14 AM PANELBOARD OPERATOR 09/07/2024 6:14 AM PANELBOARD OPERATOR Narrative Resulting Agency Comment Performing Organization Information: Site ID: Name: [facility] Address: [address] [place] [phone] Director: Deon Ann Dmitry Arboleda MD LAB BLOOD ORDERABLES Final Re sult Performing Organization Address [facility] Co de Phone Number [facility] See order comments [place] [address] * (ABNORMAL) Renal function panel (09/07/2024 6:14 AM PANELBOARD OPERATOR) Glucose 106(H) 65 - 99 mg/dL See order comments Comment: Fasting reference interval For someone without known diabetes, a glucose value between 100 and 125 mg/dL is consistent with prediabetes and should be confirmed with a follow-up test. BUN 28(H) 7 - 25 mg/dL See order comments Creatinine 1.38(H) 0.70 - 1.22 mg/dL See order comments eGFR CKD-EPI CR 2020 50(L) > OR = 60 mL/min/1.7 3m2 See order comments BUN/Creatinine Ratio 20 6 - 22 (calc) See order comments Sodium 139 135 - 146 mmol/L See order comments Potassium 4.6 3.5 - 5.3 mmol/L See order comments Chloride 105 98 - 110 mmol/L See order comments Bicarbonate (CO2) 23 20 - 32 mmol/L See order comments Calcium 9.7 8.6 - 10.3 mg/dL See order comments Phosphorus 3.9 2.1 - 4.3 mg/dL See order comments Albumin 4.4 3.6 - 5.1 g/dL See order comments Blood specimen (specimen) Venous blood / Unknown 09/07/2024 6:14 AM PANELBOARD OPERATOR 09/07/2024 6:14 AM PANELBOARD OPERATOR Narrative Resulting Agency Comment Performing Organization Information: Site ID: [id number] Name: [facility] Address: [address] [place] [phone] Director: Deon Ann us Dmitry Arboleda MD LAB BLOOD ORDERABLES [facility] See order comments [place] [address] documented in this encounter Visit Diagnoses Diagnosis Stage 3a chronic kidney disease (HCC) documented in this encounter Care Teams Operation Supervisor Relationship Specialty Start Date End Date Samia Burger MD [address] [place] [address] PCP - General Family Medicine 07/13/23 documented as of this encounter
--- OUTSIDE RECORDS SUMMARY | 2025-07-13 21:49 | XMS_ITS | Encounter Summary ---
Author Organization [facility] Address [address] [facility] [address] [place] [address] Phone Care Team Providers Care Genetic Supervisor Name Role Phone Samia Burger MD Primary Care Provider [phone] Encounter Details Date Type Department Care Team (Late Contact Info) Description 03/29/2025 Orders Only [facility] [address] [place] [address] Dmitry Arboleda MD [address] [place] [address] Stage 3a chronic kidney disease [...] st Contact Info) Description 10/01/2025 10:00 AM GASOLINE ATTENDANT Office Visit [facility] [address] [place] [phone] Dmitry Arboleda MD [address] [place] [address] documented as of this encounter Procedures Procedure Name Priority Date/Time Associated Diagnosis Comments BASIC METABOLIC PANEL Routine 04/11/2025 8:29 AM CDT Stage 3a chronic kidney disease (HCC) documented in this encounter Results * (ABNORMAL) Basic metabolic panel (04/11/2025 8:29 AM CDT) Glucose 207(H) 65 - 99 mg/dL [facility] Comment: Fasting reference interval For someone without known diabetes, a glucose value >125 mg/dL indicates that they may have diabetes and this should be confirmed with a follow-up test. BUN 29(H) 7 - 25 mg/dL [facility] Creatinine 1.32(H) 0.70 - 1.22 mg/dL [facility] eGFR CKD-EPI CR 2020 53(L) > OR = 60 mL/min/1.7 3m2 [facility] BUN/Creatinine Ratio 22 6 - 22 (calc) [facility] Sodium 140 135 - 146 mmol/L [facility] Potassium 4.5 3.5 - 5.3 mmol/L [facility] Chloride 103 98 - 110 mmol/L [facility] Bicarbonate (CO2) 26 20 - 32 mmol/L [facility] Calcium 9.6 8.6 - 10.3 mg/dL [facility] Blood specimen (specimen) Venous blood / Unknown 04/11/2025 8:29 AM CDT 04/11/2025 8:29 AM CDT Narrative Resulting Agency Comment Performing Organization Information: Site ID: CB Name: [facility] Address: [address] [place] [phone] Director: Deon Ann us Dmitry Arboleda MD LAB BLOOD ORDERABLES Final Re sult [facility] [address] [place] [address] documented in this encounter Visit Diagnoses Diagnosis Stage 3a chronic kidney disease (HCC) documented in this encounter Care Teams Genetic Supervisor Relationship Specialty Start Date End Date Samia Burger MD [address] [place] [address] PCP - General Family Medicine 07/13/23 documented as of this encounter
--- OUTSIDE RECORDS SUMMARY | 2025-07-13 21:49 | XMS_ITS | Clinical Summary ---
Author Organization [facility] Address [address] [place] [address] Phone Care Team Providers Care Pin Chaser Name Role Phone Samia Burger MD Primary Care Provider [phone] Allergies Active Allergy Reactions Criticality Noted Date Comments Statins Other (see comments) High 04/02/2023 Medications Canagliflozin (Invokana) 100 MG tablet Take 1 tablet by mouth 1 (one) time each day 3 Active clopidogrel (PLAVIX) 75 MG tablet Take 75 mg by mouth 1 (one) time each day 3 Active cyanocobalamin (VITAMIN B-12) 1000 MCG tablet Take 1,000 mcg by mouth in the morning. 0 Active ezetimibe (ZETIA) 10 MG tablet Take 10 mg by mouth 1 (one) time each day 3 Active finasteride (PROSCAR) 5 MG tablet Take 5 mg by mouth 1 (one) time each day in the morning 3 Active glipiZIDE (GLUCOTROL XL) 5 MG 24 hr tablet Take 1-2 tablets by mouth in the morning and 1-2 tablets in the evening. 2 tab AM, 1 tab PM. 3 Active metFORMIN (GLUCOPHAGE) 1000 MG tablet Take 1,000 mg by mouth in the morning and 1,000 mg in the evening. 3 Active rosuvastatin (CRESTOR) 5 MG tablet Take 1 tablet by mouth 2 (two) times a week 1 tab Wednesday, 1 tab 3 Active tamsulosin (FLOMAX) 0.4 MG 24 hr capsule Take 1 capsule by mouth 1 (one) time each day 3 Active carvedilol (COREG) 6.25 MG tablet Take 6.5 mg by mouth in the morning and 6.5 mg in the evening. Take with meals. 3 Active Multiple Vitamins-Minera ls (PreserVision AREDS) tablet Take 1 tablet by mouth in the morning and 1 tablet in the evening. Active Mounjaro 5 MG/0.5ML solution auto-injector ADMINISTER 5 MG UNDER THE SKIN 1 TIME WEEKLY Active lisinopril 5 MG tablet Take 5 mg by mouth in the morning. 4 Active Active Problems Problem Noted Date Diagnosed Date Hypertension 09/23/2023 09/23/2023 Anemia in chronic kidney disease 09/23/2023 History of arthroscopic procedure on shoulder 09/23/2023 Coronary arteriosclerosis 11/14/20212023 Stage 3a chronic kidney disease 11/14/2021 09/23/2023 Microalbuminuria 11/18/2018 09/23/2023 Cobalamin deficiency 05/17/2018 09/23/2023 Overview (09/23/2023): Likely 2/2 to metformin use. Benign prostatic hyperplasia 06/14/201512/2023 Hyperlipidemia 06/14/2015 09/23/2023 Type 2 diabetes mellitus 07/05/2014 024 Gout 10/11/2012 09/23/2023 Gastroesophageal reflux disease 04/11/2012 09/23/2023 Osteoarthritis 12/07/2006 09/23/2023 Personal history of poliomyelitis 12/07/2006 09/23/2023 Overview (09/23/2023): ATROPHY RIGHT LEG Encounters Date Type Department Care Team Description 04/18/2025 Results Follow-Up [facility] [address] [place] [id number] Dmitry Arboleda MD from Last 3 Months Immunizations Immunization Administration Dates Next Due Influenza (IM) Preservative Free 06/23/2011 Influenza Split High Dose Pr eservative Free IM 06/20/2019,06/29/2018,07/15/2017,06/15,06/22/2014 Influenza Vaccine, Quadrival ent, Adjuvanted 06/11/2023,05/27/2021 Influenza, Unspecified 09/29/2021 Pfizer SARS-COV-2 06/19/2021,10/31/2020,10/10/19 21 Pneumococcal Polysaccharide 09/25/2008, 2 Family History Medical History Relation Comments Cancer Brother Heart disease Father Cancer Mother Cancer Sister Diabetes Sister Relation Status Comments Brother Father Father's Brother Mother Sister Social History Tobacco Use Types Packs/Day Years Used Date Smoking Tobacco: Former Cigarettes 1 20.2 1 967 - 1986 Smokeless Tobacco: Never Tobacco Cessation:Counseling Given: Not Answered Alcohol Use Standard Drinks/Week Comments Yes 7 (1 standard drink = 0.6 oz pur e alcohol) Sex and Gender Information Value Date Recorded Sex Assigned at Not on file Legal Sex Male 11:45 AM EDT Gender Identity Not on file Sexual Orientation Not on file Last Filed Vital Signs Vital Sign Reading Time Taken Comments Blood Pressure 114/60 09/29/2024 9:20 AM COMPUTER SYSTEMS SECURITY ANALYST Pulse 78 09/29/2024 9:20 AM COMPUTER SYSTEMS SECURITY ANALYST Temperature - - Respiratory Rate - - Oxygen Saturation 94% 09/29/2024 9:20 AM COMPUTER SYSTEMS SECURITY ANALYST Inhaled Oxygen Concentration - - Weight 68 kg (150 lb) 09/29/2024 9:20 AM COMPUTER SYSTEMS SECURITY ANALYST Height 167.6 cm (5' 6) 09/29/2024 9:20 AM COMPUTER SYSTEMS SECURITY ANALYST Body Mass Index 24.21 09/29/2024 9:20 AM COMPUTER SYSTEMS SECURITY ANALYST Plan of Treatment Upcoming Encounters Date Type Department Care Team (Late st Contact Info) Description 10/01/2025 10:00 AM COMPUTER SYSTEMS SECURITY ANALYST Office Visit [facility] [place] [address] [place] [address] Dmitry Arboleda MD [address] [place] [address] Health Maintenance Due Date Last Done Comments Diabetes: Ophthalmology Exam 07/13/2023 Diabetes: Pedal Pulse Checked 07/13/2023 Diabetes: Sensory Foot Exam 07/13/2023 Diabetes: Visual Foot Exam 07/13/2023 Influenza Vaccine (#1) 2025 4, 06/11/2023, 09/29/2021, Additional history exists Diabetes: Hemoglobin A1C 07/12/2025 025, 04/11/2025, 01/05/2025, Additional history exists Pneumococcal Vaccine: 50+ Years Completed 06/13/2015, 09/25/2008, 08/24/2002 Hepatitis B Vaccine Aged Out No longe r eligible based on patient's age to complete this topic Insurance [place] [id number] [facility] Medicare Care Teams Pin Chaser Relationship Specialty Start Date End Date Samia Burger MD [address] [place] [address] PCP - General Family Medicine 07/13/23
--- OUTSIDE RECORDS SUMMARY | 2025-07-13 21:50 | XMS_ITS | Clinical Summary ---
Author Organization [employer] [facility] Address [address] [place] [id number] Care Team Providers Care Chemical Laboratory Chief Name Role Phone Samia Burger MD Primary Care Provider Irvin Rice MD Unavailable Robert Silva MD Unavailable Allergies Active Allergy Reactions Criticality Noted Date Comments Qydxrkb-Gwv-Uau Reductase Inhibitors Myalgia,Muscle Weakness High 01/01/2015 Medications multivitamin (MVI) tablet Take 1 tablet by mouth once daily. 0 020 Active Blood-Glucose Meter (Accu-Chek Guide Me Glucose Mtr)Indications:C ontrolled type 2 diabetes mellitus with complication, without long-term current use of insulin (HC) Dispense glucose meter covered by the patient insurance. Test 2 times per day. (patient is replacing the accu-check guide me meter and prefers this as a replacement if covered) 1 Each 022 Active blood sugar diagnostic (Accu-Chek Guide test strips) stripIndications: Uncontrolled type 2 diabetes mellitus with hyperglycemia (HC) TEST 2 TIMES/DAY 200 Each 3 025 Active pen needle, diabetic (Comfort EZ Pen [place]) 33 gauge x 5/32 ndleIndications:T ype 2 diabetes mellitus without complication, without long-term current use of insulin (HC) As directed. 100 Each 11 025 Active lancets (Accu-Chek Fastclix Lancet Drum)Indications: Uncontrolled type 2 diabetes mellitus with hyperglycemia (HC) Dispense item covered by pt ins. E11.9 IDDM type II - Test 2 times/day. 200 Each 3 025 Active route aide ([employer] Flip 3 [place]) for continuous blood glucose monitor (CGM)Indications: Uncontrolled type 2 diabetes mellitus with hyperglycemia (HC) To be used to read blood sugars follow patternmaker bench directions. 1 Each 025 Active antiox #8/om3/dha/epa/santo t/zeax (PRESERVISION AREDS 2 (OMEGA-3) ORAL) Take 1 Tablet by mouth two times daily. Active aspirin chewable 81 mg chewable tabletIndications :Coronary artery disease involving ely shoshone coronary artery without angina pectoris, unspecified whether ely shoshone or transplanted heart Take 1 Tablet (81 mg) by mouth or nasogastric tube once daily. 30 Tablet 11 12/23/19 25 11:00 AM CDT 025 Active clopidogreL 75 mg tabletIndications :Coronary artery disease involving ely shoshone coronary artery without angina pectoris, unspecified whether ely shoshone or transplanted heart Take 1 Tablet (75 mg) by mouth once daily in the morning. 90 Tablet 3 025 Active nitroglycerin 0.4 mg sublingual tabletIndications :Coronary artery disease involving ely shoshone coronary artery without angina pectoris, unspecified whether ely shoshone or transplanted heart Up to 3 tablets in [address] 1 Tablet (0.4 mg) under the tongue every 5 minutes if needed for Chest Pain. Up to 3 tablets in 15 minutes. If patient requesting greater than 25 doses in 30 days, to provider to authorize 30 Tablet 025 Active finasteride (PROSCAR) 5 mg tabletIndications :Benign prostatic hyperplasia with incomplete bladder emptying Take 1 Tablet (5 mg) by mouth once daily in the morning. 90 Tablet 3 025 Active tamsulosin 0.4 mg capsuleIndication s:BPH without urinary obstruction Take 1 Capsule (0.4 mg) by mouth once daily after a meal. 90 Capsule 3 025 Active triamcinolone 0.1 % lotionIndications :Dermatitis APPLY TOPICALLY TO THE AFFECTED AREA THREE TIMES DAILY 60 mL 3 025 Active metFORMIN (GLUCOPHAGE) 1,000 mg tabletIndications :Controlled type 2 diabetes mellitus with stage 3 chronic kidney disease, without long-term current use of insulin (HC) Take 1 Tablet (1,000 mg) by mouth two times daily with meals. 180 Tablet Active glipiZIDE extended-release (GLUCOTROL XL) 5 mg Extended-Release tabletIndications :Controlled type 2 diabetes mellitus with stage 3 chronic kidney disease, without long-term current use of insulin (HC) Take 1 Tablet (5 mg) by mouth once daily before a meal. 90 Tablet Active tirzepatide (MOUNJARO) 7.5 mg/0.5 mL penIndications:Co ntrolled type 2 diabetes mellitus with stage 3 chronic kidney disease, without long-term current use of insulin (HC) Inject 7.5 mg subcutaneous once weekly. 6 mL 025 Active rosuvastatin (CRESTOR) 5 mg tabletIndications :Coronary artery disease involving ely shoshone coronary artery without angina pectoris, unspecified whether ely shoshone or transplanted heart TAKE 1 TABLET BY MOUTH ON WEDNESDAY AND WEDNESDAY 24 Tablet 3 025 Active ezetimibe (ZETIA) 10 mg tabletIndications :Hyperlipidemia, unspecified hyperlipidemia type Take 1 Tablet (10 mg) by mouth once daily in the evening. 90 Tablet 025 Active canagliflozin (Invokana) 100 mg tabletIndications :Controlled type 2 diabetes mellitus with stage 3 chronic kidney disease, without long-term current use of insulin (HC) Take 1 Tablet (100 mg) by mouth once daily. 90 Tablet 025 Active cyanocobalamin (Vitamin B-12) 1,000 mcg tabletIndications :B12 deficiency Take 1 Tablet (1,000 mcg) by mouth once daily. 90 Tablet 3 025 Active FreeStyle Flip 3 Plus Sensor for continuous blood glucose monitor (CGM)Indications: Uncontrolled type 2 diabetes mellitus with hyperglycemia (HC) To be used to read blood sugars, change sensor every 15 days. 6 Each 3 025 Active finasteride (PROSCAR) 5 mg tabletIndications :Benign prostatic hyperplasia with incomplete bladder emptying Take 1 Tablet (5 mg) by mouth once daily in the morning. 90 Tablet 3 024 2024 Discontinued(R eorder (E-cancel not sent)) triamcinolone 0.1 % lotionIndications :Dermatitis Apply topically to affected area(s) three times daily. 60 mL 3 024 2024 Discontinued tamsulosin 0.4 mg capsuleIndication s:BPH without urinary obstruction Take 1 Capsule (0.4 mg) by mouth once daily after a meal. 90 Capsule 3 025 2024 Discontinued(R eorder (E-cancel not sent)) FreeStyle Flip 3 Plus Sensor for continuous blood glucose monitor (CGM)Indications: Uncontrolled type 2 diabetes mellitus with hyperglycemia (HC) To be used to read blood sugars, change sensor every 15 days. 6 Each 3 025 2024 Discontinued(R eorder (E-cancel not sent)) tirzepatide (Mounjaro) 5 mg/0.5 mL penIndications:Co ntrolled type 2 diabetes mellitus with stage 3 chronic kidney disease, without long-term current use of insulin (HC) Inject 5 mg subcutaneous once weekly. 6 mL 2024 Discontinued(* Medication adjustment) rosuvastatin (CRESTOR) 5 mg tabletIndications :Coronary artery disease involving ely shoshone coronary artery without angina pectoris, unspecified whether ely shoshone or transplanted heart TAKE 1 TABLET BY MOUTH ON WEDNESDAY AND WEDNESDAY 24 Tablet 3 2024 Discontinued(R eorder (E-cancel not sent)) metFORMIN (GLUCOPHAGE) 1,000 mg tabletIndications :Controlled type 2 diabetes mellitus with stage 3 chronic kidney disease, without long-term current use of insulin (HC) Take 1 Tablet (1,000 mg) by mouth two times daily with meals. 180 Tablet 2024 Discontinued(R eorder (E-cancel not sent)) glipiZIDE extended-release (GLUCOTROL XL) 5 mg Extended-Release tabletIndications :Controlled type 2 diabetes mellitus with stage 3 chronic kidney disease, without long-term current use of insulin (HC) Take 1 Tablet (5 mg) by mouth once daily before a meal. 90 Tablet 025 2024 Discontinued(R eorder (E-cancel not sent)) ezetimibe (ZETIA) 10 mg tabletIndications :Hyperlipidemia, unspecified hyperlipidemia type Take 1 Tablet (10 mg) by mouth once daily in the evening. 90 Tablet 025 2024 Discontinued(R eorder (E-cancel not sent)) canagliflozin (Invokana) 100 mg tabletIndications :Controlled type 2 diabetes mellitus with stage 3 chronic kidney disease, without long-term current use of insulin (HC) Take 1 Tablet (100 mg) by mouth once daily. 90 Tablet 025 2024 Discontinued(R eorder (E-cancel not sent)) cyanocobalamin (Vitamin B-12) 1,000 mcg tabletIndications :B12 deficiency Take 1 Tablet (1,000 mcg) by mouth once daily. 90 Tablet 3 025 2024 Discontinued(R eorder (E-cancel not sent)) Active Problems Problem Noted Date Diagnosed Date BPH without urinary obstruction 06/30/2024 Dermatitis 06/30/2024 Stage 3b chronic kidney disease 10/15/2023 Bilateral exudative age-rela stefano macular degeneration, unspecified stage 03/09/2023 Stage 3a chronic kidney disease 11/14/2021 Acute pain of right shoulder 11/14/2021 History of non-ST elevation myocardial infarctio n (NSTEMI) 11/14/2021 Coronary artery disease invo lving ely shoshone coronary artery without angina pectoris 11/14/2021 Closed [...] Encounters Date Type Department Care Team Description 07/13/2025 1:10 PM CDT Procedure Only [facility] [address] [facility] [place] [address] Samia Burger MD Diabetes; Derm Problem (Left side of neck) 07/13/2025 Travel 07/10/2025 Refill [facility] [address] [place] [address] [address] Samia Burger MD Refill Request (Finasteride) 07/07/2025 Refill [facility] [address] [place] [address] Samia Burger MD Refill Request (Triamcinolone) 07/06/2025 9:30 AM CDT Office Visit [facility] [address] [place] [address] Kristi Mcqueen PA Follow Up (BPH) 07/06/2025 Travel 05/01/2025 Refill [facility] [address] [place] [address] Glen Mooney MD Refill Request (Nitroglycerin 0.4mg sub tab 25s) from Last 3 Months Immunizations Immunization Administration [...] Name Status Comments Brother Father (Age 76) [place] Mother (Age 86) Paternal Uncle [place] Sister 1 Sister 2 Sister 3 Social [...] isolated from those around you? 0 10/06/2024 Alcohol Use Answer Date Recorded How often do you have a drink containing alcohol ? 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 Not on file Not on file Obstetrics History Last Filed Vital Signs Vital Sign Reading Time Taken Comments Blood Pressure 124/64 07/13/2025 2:08 PM CDT Pulse 83 07/13/2025 1:37 PM CDT Temperature 36.4 C (97.5 F) 12/22/2024 8:50 AM CDT Respiratory Rate 18 01/09/2025 3:00 PM CDT Oxygen Saturation 96% 07/13/2025 1:37 PM CDT Inhaled Oxygen Concentration - - Weight 61.7 kg (136 lb) 07/13/2025 1:37 PM CDT Height 165 cm (5' 4.96) 02/02/2025 2:43 PM CDT Body Mass Index 22.66 02/02/2025 2:43 PM CDT Plan of Treatment Upcoming Encounters Date Type Department Care Team (Late st Contact Info) Description 10/16/2025 8:45 AM CONVEYOR WORKER Office Visit [facility] [address] [place] [address] Samia Burger MD [address] [place] [address] Health Maintenance Due Date Last Done Comments Zoster (shingles) series for age 50+ (3 of 3) 09/11/2024 07/17/2024, 01/31/2010 Influenza Vaccine (#1) 2025 , 06/11/2023, 09/29/2021, Additional history exists Medicare Wellness for age 65+ 07/01/2025 06/30/2024, 03/09/2023, 11/14/2021, Additional history exists Depression screening for age 12+ 07/03/2025 07/03/2024, 07/03/2024, 06/30/2024, Additional history exists BMI (ht and wt on same day) for age 18+ 02/02/2026 02/02/2025, 12/14/2024, 12/08/2024, Additional history exists Tetanus booster 02/02/2026 02/03/2016, 01/18, 11/27/2005, Additional history exists Pneumococcal series for age 50+ Completed 06/13/2015, 09/25/2008, 08/24/2002 RSV vaccine for adults or Completed 07/17/2024 Hepatitis B series for 19+ Aged Out N o longer eligible based on patient's age to complete this topic Procedures Procedure Name Priority Date/Time Associated Diagnosis Comments HEMOGLOBIN A1C MONITORING (POCT) Routine 07/13/2025 1:11 PM CDT Controlled type 2 diabetes mellitus with stage 3 chronic kidney disease, without long-term current use of insulin (HC) DE ISAIAS POST-VOIDING RESIDUAL URINE&/BLADDER CAP Routine 07/06/2025 12:00 AM CDT Benign prostatic hyperplasia with incomplete bladder emptying from Last 3 Months Results * (ABNORMAL) POCT Hemoglobin A1C Monitoring (07/13/2025 1:11 PM CDT) POC HEMOGLOBIN A1C 7.8(H) <6.0 % OF TOTAL HGB 07/13/2025 1:25 PM CDT [facility] Comment: Any point of care results exhibiting inconsistency with the patient's clinical status should be repeated using a different testing method. Blood BLOOD SPECIMEN / Unknown [facility] / Unknown 07/13/2025 1:11 PM CDT 07/13/2025 1:11 PM CDT us Samia Burger MD CHEMISTRY Final Resul t [facility] [place] [id number], [place] [phone] [facility] [address] [facility] [place] [address], * DE ISAIAS POST-VOIDING RESIDUAL URINE&/BLADDER CAP (07/06/2025 12:00 AM CDT) Kristi TOHMASON [facility] - URINARY SYSTEM SERVI LEONARD Final Result from Last [address] [place] [id number] MEDICARE PART B HB ONLY MEDICA PRIME [employer] PB ONLY MEDICA PRIME SOLUTION HB MEDICARE PART A HB ONLY Advance Directives * Full Code (Latest Code Status on File) Date Activated Date Inactivated Comments 12/21/2024 5:20 PM 12/22/2024 2:01 PM Question Answer Comments Code Status Discussion: Unable to Assess Preferences, Provider to review later Care Teams Chemical Laboratory Chief Relationship Specialty Start Date End Date Samia Burger MD [address] [facility] [place] [address] PCP - General Family Practice 03/18/17 Irvin Rice MD [address] [place] [address] Orthopedics Surgery - Orthopedics 08/12/21 Robert Silva MD [address] [place] [address] [facility] [place] [address] Surgery - Urology 07/03/24
[2025-07-13 22:18] VITALS: BP 162/81; PULSE 73; RESP 16; TEMP 36.8; O2SAT 96; BMI 22.1
--- NOTE | 2025-07-14 00:10 | ED.WOUNDLAC ---
HPI - Wound/Laceration General Time Seen by Provider: 00:10 Date Seen: 07/14/25 Chief Complaint: Laceration/Wound Stated Complaint: surg to remove wart/can't stop bleeding Time Seen by Provider: 07/13/25 21:49 Source: patient Mode of arrival: ambulatory Limitations: no limitations History of Present Illness HPI narrative: 85-year-old male who comes in today with concern for bleeding after shave biopsy of a mole. He had this done today except bleeding since. Takes Plavix but no other blood thinners. Related Data Home Medications ?Medication ?Instructions ?Recorded ?Confirmed carvedilol 6.25 mg tablet 6.25 mg PO BID 04/07/22 07/13/25 clopidogrel 75 mg tablet 75 mg PO DAILY 04/07/22 07/13/25 cyanocobalamin (vitamin B-12) 1,000 mcg PO DAILY 04/07/22 07/13/25 1,000 mcg capsule ezetimibe 10 mg tablet 10 mg PO DAILY 04/07/22 07/13/25 finasteride 5 mg tablet 5 mg PO DAILY 04/07/22 07/13/25 glipizide 5 mg tablet 10 mg PO DAILY 04/07/22 07/13/25 lancets (Accu-Chek Fastclix Lancet 04/07/22 01/22/23 Chioma) metformin 1,000 mg tablet 1,000 mg PO BIDWMEAL 04/07/22 07/13/25 multivitamin 1 tab PO DAILY 04/07/22 07/13/25 rosuvastatin 5 mg tablet 5 mg PO .mon/thurs 04/07/22 07/13/25 tamsulosin 0.4 mg capsule 0.4 mg PO DAILY 04/07/22 07/13/25 canagliflozin 100 mg tablet 100 mg PO QAM 04/02/23 07/13/25 (Invokana) vitamins A,C,K-ewuv-qtedxe 2,148 2 tab PO BID 04/10/24 07/13/25 mcg-113 mg-45 mg-17.4 mg tablet (PreserVision AREDS) aspirin 81 mg tablet 81 mg PO DAILY 02/10/25 07/13/25 tirzepatide 5 mg/0.5 mL 5 mg subcut QWEEK 02/10/25 07/13/25 subcutaneous pen injector (Mounjaro) Allergies Allergy/AdvReac Type Severity Reaction Status Date / Time Vkxmpkm-QDY-RtO Reductase Allergy Intermediate Muscle Pain Verified 07/13/25 22:22 Inhibitor PFSH PFSH Medical History Coronary artery disease involving cheesh-na coronary artery without angina pectoris ?I25.10 - Atherosclerotic heart disease of cheesh-na coronary artery without angina pectoris (ICD-10) B12 deficiency ?E53.8 - Deficiency of other specified B group vitamins (ICD-10) BPH (benign prostatic hyperplasia) ?N40.0 - Benign prostatic hyperplasia without lower urinary tract symptoms (ICD-10) Hyperlipemia ?E78.5 - Hyperlipidemia, unspecified (ICD-10) Thyroid nodule ?E04.1 - Nontoxic single thyroid nodule (ICD-10) Diabetes mellitus type 2, controlled ?E11.9 - Type 2 diabetes mellitus without complications (ICD-10) Gout ?M10.9 - Gout, unspecified (ICD-10) GERD (gastroesophageal reflux disease) ?K21.9 - Gastro-esophageal reflux disease without esophagitis (ICD-10) Migraine ?G43.909 - Migraine, unspecified, not intractable, without status migrainosus (ICD-10) TERRI (obstructive sleep apnea) ?G47.33 - Obstructive sleep apnea (adult) (pediatric) (ICD-10) Personal history of poliomyelitis ?Z86.12 - Personal history of poliomyelitis (ICD-10) Non-ST elevation myocardial infarction (NSTEMI) ?I21.4 - Non-ST elevation (NSTEMI) myocardial infarction (ICD-10) Surgical History Status post arthroscopy of right shoulder (12/07/22) ?Z98.890 - Other specified postprocedural states (ICD-10) Hx of arthroscopy of left knee ?Z98.890 - Other specified postprocedural states (ICD-10) History of surgery ?Z98.890 - Other specified postprocedural states (ICD-10) History of back surgery ?Z98.890 - Other specified postprocedural states (ICD-10) Status post left rotator cuff repair (04/08/22) ?Z98.890 - Other specified postprocedural states (ICD-10) Social History Smoking Status: Former smoker What tobacco products do you use: cigarettes Smoking quit date/years: >15 years ago Do you use any of these nicotine containing products: None How often do you have a drink containing alcohol: 4 or more times a week Alcohol type: hard liquor How many standard drinks containing alcohol do you have on a typical day: 1 or 2 How often do you have six or more drinks on one occasion: Never AUDIT-C Alcohol total score: 4 Non-prescribed substance use: denies use Caffeine: Yes Exam Narrative: Exam Narrative: General: well nourished , NAD Head: Atraumatic and normocephalic ENT: External ears and external nose are normal Eyes: Conjunctiva clear, pupils are equal reactive, external ocular motions are intact Neck: Full spontaneous range of motion of the neck Lungs: No respiratory distress Musculoskeletal: No tenderness or deformity Neurologic: No gross focal neurologic deficits Skin: Shave biopsy site on the left side of the neck with active slow venous ooze, blood soaked gauze under Tegaderm in place Psych: Mood and affect are appropriate Const: Vital Signs, click to edit/add: Vital Signs - 24 hr 07/13/25 22:18 Temperature 98.2 F Pulse Rate [Pulse Oximeter] 73 Respiratory Rate 16 Blood Pressure [Ri ght Upper Arm] 162/81 H Pulse Oximetry 96 Oxygen Delivery Me thod Room Air Course Course ED Course: Reviewed primary care office visit from earlier today which was review diabetes and hypertension, A1c 7.8, would jar was increased. Patient had a mole removed from his neck with a derma blade, also had an area of actinic keratosis on the head treated with cryotherapy. Patient seen examined, presents today with bleeding after having a shave biopsy on the left side of his neck. Lidocaine 1% with epinephrine 2 mL total injected around the site with some improvement of bleeding. The area was extensively cauterized with silver nitrate. Still trace amount of bleeding and 2 buyqch-cx-yampn 5 0 fast-absorbing gut sutures were placed with hemostasis obtained. Discussed care of the wound and stable for discharge. Vital Signs Vital signs: Initial Vital Signs Temperature 98.2 F 07/13/25 22:18 Temperature Source Temporal Artery Scan 07/13/25 22:18 Pulse Rate 73 10/24/25 22:18 Respiratory Rate 16 07/13/25 22:18 Blood Pressure 162/81 H 07/13/25 22:18 Blood Pressure Mean 108 H 07/13/25 22:18 Pulse Oximetry 96 07/13/25 22:18 Oxygen Delivery Method Room Air 07/13/25 22:18 Vital Signs Temperature 98.2 F 07/13/25 22:18 Pulse Rate 73 07/13/25 22:18 Respiratory Rate 16 07/13/25 22:18 Blood Pressure 162/81 H 07/13/25 22:18 Pulse Oximetry 96 07/13/25 22:18 Oxygen Delivery Method Room Air 07/13/25 22:18 Temperature 98.2 F 07/13/25 22:18 Pulse Rate 73 07/13/25 22:18 Respiratory Rate 16 07/13/25 22:18 Blood Pressure 162/81 H 07/13/25 22:18 Pulse Oximetry 96 07/13/25 22:18 Oxygen Delivery Method Room Air 07/13/25 22:18 Discharge Plan Discharge Clinical Impression: Postoperative hemorrhage of skin following dermatologic procedure Patient Disposition: Home, Self-Care Condition: Improved Instructions: Postoperative Bleeding (ED) Additional Instructions: Keep current dressing on until evening of July 14. You can remove this and wash the area gently with soap and water. Apply Band-Aid for comfort as this is an area that may rub against her collar. You may get a wet but do not submerge. Sutures are absorbable and will fall out on their own Activity Level: Activity as Tolerated Discharge Diet: Regular Prescriptions: No Action Invokana 100 mg tablet 100 mg PO QAM PreserVision AREDS 2,148 mcg-113 mg-45 mg-17.4mg tablet 2 tab PO BID Rx Instructions: administer with AM and PM meals aspirin 81 mg tablet 81 mg PO DAILY Mounjaro 5 mg/0.5 mL pen injector 5 mg subcut QWEEK carvedilol 6.25 mg tablet 6.25 mg PO BID Rx Instructions: must administer with a meal/food clopidogrel 75 mg tablet 75 mg PO DAILY cyanocobalamin (vitamin B-12) 1,000 mcg capsule 1,000 mcg PO DAILY ezetimibe 10 mg tablet 10 mg PO DAILY finasteride 5 mg tablet 5 mg PO DAILY glipizide 5 mg tablet 10 mg PO DAILY (DME) lancets [Accu-Chek Fastclix Lancet Drum] Misc See Rx Instructions .Route Rx Instructions: As directed metformin 1,000 mg tablet 1,000 mg PO BIDWMEAL multivitamin Tablet 1 tab PO DAILY rosuvastatin 5 mg tablet 5 mg PO .wed/ tamsulosin 0.4 mg capsule 0.4 mg PO DAILY Follow Up/Referrals: Samia Burger MD [Primary Care Provider, Family Practice] Stand Alone Forms: [employer] Info Instructions
[2025-07-14 00:45] VITALS: BP 166/98; PULSE 86; RESP 14; O2SAT 97
--- OUTSIDE RECORDS SUMMARY | 2025-07-14 00:48 | XMS_ITS | Encounter Summary ---
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 Office Visit [facility] [address] [place] [phone] Dmitry Arboleda MD [address] [place] [address] documented as of this encounter [...] Site ID: CB Name: [facility] Address: [address] [place] [phone] Director: Deon Ann us Dmitry Arboleda MD LAB BLOOD ORDERABLES Final Re sult [facility] [address] [place] [address] documented in this encounter Visit Diagnoses Diagnosis Stage 3a chronic kidney disease (HCC) documented in this encounter Care Teams Store Clerk Relationship Specialty Start Date End Date Samia Burger MD [address] [place] [address] PCP - General Family Medicine 07/13/23 documented as of this encounter
--- OUTSIDE RECORDS SUMMARY | 2025-07-14 00:48 | XMS_ITS | Clinical Summary ---
Author Organization [facility] Address [address] [place] [address] Care Team Providers Care Director Funds Development Name Role Phone Samia Burger MD Primary Care Provider [phone] Irvin Rice MD Unavailable [phone] Robert Silva MD Unavailable Allergies Active Allergy Reactions Criticality Noted Date Comments Dldjhga-Gjb-Joz Reductase Inhibitors Myalgia,Muscle Weakness High 01/01/2015 Medications [...] Active pen needle, diabetic (Comfort EZ Pen [place]) 33 gauge x 5/32 ndleIndications:T ype 2 diabetes mellitus without complication, without long-term current use of insulin (HC) As directed. 100 Each 11 025 Active lancets (Accu-Chek Fastclix Lancet Drum)Indications: Uncontrolled type 2 diabetes mellitus with hyperglycemia (HC) Dispense item covered by pt ins. E11.9 IDDM type II - Test 2 times/day. 200 Each 3 025 Active pipe bender ([employer] Flip 3 [place]) for continuous blood glucose monitor (CGM)Indications: Uncontrolled type 2 diabetes mellitus with hyperglycemia (HC) To be used to read blood sugars follow barrel ribs solderer directions. 1 Each 025 Active antiox #8/om3/dha/epa/santo t/zeax (PRESERVISION AREDS 2 (OMEGA-3) ORAL) Take 1 Tablet by mouth two times daily. Active aspirin chewable 81 mg chewable tabletIndications :Coronary artery disease involving [place] coronary artery without angina pectoris, unspecified whether [place]irie [place] or transplanted heart Take 1 Tablet (81 mg) by mouth or nasogastric tube once daily. 30 Tablet 11 12/23/19 25 11:00 AM CDT 025 Active clopidogreL 75 mg tabletIndications :Coronary artery disease involving [place] coronary artery without angina pectoris, unspecified whether [place] or transplanted heart Take 1 Tablet (75 mg) by mouth once daily in the morning. 90 Tablet 3 025 Active nitroglycerin 0.4 mg sublingual tabletIndications :Coronary artery disease involving [place] coronary artery without angina pectoris, unspecified whether [place] or transplanted heart Up to 3 tablets [...] 5 mg tabletIndications :Coronary artery disease involving [place] coronary artery without angina pectoris, unspecified whether [place] or transplanted heart TAKE 1 TABLET BY [...] 5 mg tabletIndications :Coronary artery disease involving [place] coronary artery without angina pectoris, unspecified whether [place] or transplanted heart TAKE 1 TABLET BY [...] (NSTEMI) 11/14/2021 Coronary artery disease invo lving [place] coronary artery without angina pectoris 11/14/2021 Closed [...] Description 07/13/2025 1:10 PM CDT Procedure Only [facility] [address] [place] [id number] Samia Burger MD Diabetes; Derm Problem (Left side of neck) 07/13/2025 Travel 07/10/2025 Refill [facility] [address] [place] [address] Samia Burger MD Refill Request (Finasteride) 07/07/2025 Refill [facility] [address] [facility] [place] [id number] Samia Burger MD Refill Request (Triamcinolone) 07/06/2025 9:30 AM CDT Office Visit [facility] [address] [place] [address] Kristi Mcqueen PA Follow Up (BPH) 07/06/2025 Travel 05/01/2025 Refill [facility] [address] [facility] [place] [id number] Glen Mooney MD Refill Request (Nitroglycerin 0.4mg [...] Name Status Comments Brother Father (Age 76) PR Mother (Age 86) Paternal Uncle PR Sister 1 Sister 2 Sister 3 Social [...] Sex Assigned at Male 11/07/2020 8: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 Legal Sex Male 6:10 AM FORMING ROLL OPERATOR HEAVY DUTY Gender Identity Not on file Sexual Orientation Straight 11/07/2020 8: 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 Occupation Industry Job Start Date Job End [...] st Contact Info) Description 10/16/2025 8:45 AM FORMING ROLL OPERATOR HEAVY DUTY Office Visit [facility] [address] [place] [address] Samia Burger MD [address] [place] [address] Health Maintenance Due Date Last Done Comments [...] without long-term current use of insulin (HC) IN [place] POST-VOIDING RESIDUAL URINE&/BLADDER CAP Routine 07/06/2025 12:00 AM CDT Benign prostatic hyperplasia with incomplete bladder emptying from Last 3 Months Results * (ABNORMAL) POCT Hemoglobin A1C Monitoring (07/13/2025 1:11 PM CDT) POC HEMOGLOBIN A1C 7.8(H) <6.0 % OF TOTAL HGB 07/13/2025 1:25 PM CDT [facility] Comment: Any point of care results exhibiting inconsistency with the patient's clinical status should be repeated using a different testing method. Blood BLOOD SPECIMEN / Unknown [facility] / Unknown 07/13/2025 1:11 PM CDT 07/13/2025 1:11 PM CDT us Samia uBrger MD CHEMISTRY Final Resul t [facility] [place] [address], [place] [phone] [facility] [address] [place] [place] [id number], * IN [place] POST-VOIDING RESIDUAL URINE&/BLADDER CAP (07/06/2025 12:00 AM CDT) Kristi THOMASON PB - URINARY SYSTEM SERVI LEONARD Final Result from Last [address] [place] [id number] MEDICARE PART B HB ONLY MEDICA PRIME [employer] PB ONLY MEDICA PRIME SOLUTION HB MEDICARE PART A HB ONLY Advance Directives * Full Code (Latest Code Status on File) Date Activated Date Inactivated Comments 12/21/2024 5:20 PM 12/22/2024 2:01 PM Question Answer Comments Code Status Discussion: Unable to Assess Preferences, Provider to review later Care Teams Director Funds Development Relationship Specialty Start Date End Date Samia Burger MD [address] [place] [id number] PCP - General Family Practice 03/18/17 Irvin Rice MD [address] [place] [id number] Orthopedics Surgery - Orthopedics 08/12/21 Robert Silva MD [address] [place] [address] [facility] [id number] Surgery - Urology 07/03/24
--- OUTSIDE RECORDS SUMMARY | 2025-07-14 00:48 | XMS_ITS | Encounter Summary ---
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 Office Visit [facility] [address] [place] [phone] Dmitry Arboleda MD [address] [place] [address] documented as of this encounter Procedures Procedure Name Priority Date/Time Associated Diagnosis Comments URINE ALBUMIN / CREATININE RATIO Routine 09/07/2024 6:14 AM HEALTH SCIENCES MANAGER Stage 3a chronic kidney disease (HCC) HEMOGLOBIN Routine 09/07/2024 6:14 AM HEALTH SCIENCES MANAGER Stage 3a chronic kidney disease (HCC) PTH, INTACT Routine 09/07/2024 6:14 AM HEALTH SCIENCES MANAGER Stage 3a chronic kidney disease (HCC) RENAL FUNCTION PANEL Routine 09/07/2024 6:14 AM HEALTH SCIENCES MANAGER Stage 3a chronic kidney disease (HCC) documented in this encounter Results * Urine Albumin / Creatinine Ratio (09/07/2024 6:14 AM HEALTH SCIENCES MANAGER) Creatinine, Ur 98 20 - 320 mg/dL [...] catch procedure / Unknown 09/07/2024 6:14 AM HEALTH SCIENCES MANAGER 09/07/2024 6:14 AM HEALTH SCIENCES MANAGER Narrative Resulting Agency Comment Performing Organization Information: Site ID: CB Name: [facility] Address: [address] [place] [phone] Director: Deon Ann us Dmitry Arboleda MD LAB URINE ORDERABLES Final Re sult [facility] See order comments [place] [address] * PTH, intact (09/07/2024 6:14 AM HEALTH SCIENCES MANAGER) Parathyroid Hormone, Intact 59 16 - 77 pg/mL See order comments Comment: Interpretive Guide Intact PTH Calcium ------- Normal Parathyroid Normal Normal Hypoparathyroidism Low or Low Normal Low Hyperparathyroidism Primary Normal or High High Secondary High Normal or Low Tertiary High High Non-Parathyroid Hypercalcemia Low or Low Normal High Blood specimen (specimen) Venous blood / Unknown 09/07/2024 6:14 AM HEALTH SCIENCES MANAGER 09/07/2024 6:14 AM HEALTH SCIENCES MANAGER Narrative Resulting Agency Comment Performing Organization Information: Site ID: Name: [facility] Address: [address] [place] [phone] Director: Deon Ann Dmitry Arboleda MD LAB BLOOD ORDERABLES Final Re sult Performing Organization Address [facility] de Phone Number [facility] See order comments [place] [address] * (ABNORMAL) Hemoglobin (09/07/2024 6:14 AM HEALTH SCIENCES MANAGER) Hemoglobin 12.3(L) 13.2 - 17.1 g/dL See order comments Blood specimen (specimen) Venous blood / Unknown 09/07/2024 6:14 AM HEALTH SCIENCES MANAGER 09/07/2024 6:14 AM HEALTH SCIENCES MANAGER Narrative Resulting Agency Comment Performing Organization Information: Site ID: Name: [facility] Address: [address] [place] [phone] Director: Deon Ann Dmitry Arboleda MD LAB BLOOD ORDERABLES Final Re sult Performing Organization Address [facility] de Phone Number [facility] See order comments [place] [address] * (ABNORMAL) Renal function panel (09/07/2024 6:14 AM HEALTH SCIENCES MANAGER) Glucose 106(H) 65 - 99 mg/dL See [...] Venous blood / Unknown 09/07/2024 6:14 AM HEALTH SCIENCES MANAGER 09/07/2024 6:14 AM HEALTH SCIENCES MANAGER Narrative Resulting Agency Comment Performing Organization Information: Site ID: CB Name: [facility] Address: [address] [place] [phone] Director: Deon Ann us Dmitry Arboleda MD LAB BLOOD ORDERABLES [facility] See order comments [place] [address] documented in this encounter Visit Diagnoses Diagnosis Stage 3a chronic kidney disease (HCC) documented in this encounter Care Teams Real Estate Clerk Relationship Specialty Start Date End Date Samia Burger MD [address] [place] [address] PCP - General Family Medicine 07/13/23 documented as of this encounter
--- OUTSIDE RECORDS SUMMARY | 2025-07-14 00:48 | XMS_ITS | Clinical Summary ---
Author Organization [facility] Address [address] [address] Phone Care Team Providers Care Nitrocellulose Maker Name Role Phone Samia Burger MD Primary Care Provider [phone] Allergies Active Allergy Reactions Criticality Noted Date [...] [address] [phone] Dmitry Arboleda MD from Last 3 Months [...] Comments Blood Pressure 114/60 09/29/2024 9:20 AM FIXED INCOME MANAGER Pulse 78 09/29/2024 9:20 AM FIXED INCOME MANAGER Temperature - - Respiratory Rate - - Oxygen Saturation 94% 09/29/2024 9:20 AM FIXED INCOME MANAGER Inhaled Oxygen Concentration - - Weight 68 kg (150 lb) 09/29/2024 9:20 AM FIXED INCOME MANAGER Height 167.6 cm (5' 6) 09/29/2024 9:20 AM FIXED INCOME MANAGER Body Mass Index 24.21 09/29/2024 9:20 AM FIXED INCOME MANAGER Plan of Treatment Upcoming Encounters Date Type Department Care Team (Late st Contact Info) Description 10/01/2025 10:00 AM FIXED INCOME MANAGER Office Visit [facility] [address] [place] [address] Dmitry Arboleda MD [address] [place] [address] Health Maintenance Due Date Last [...] to complete this topic Insurance [address] [place] [id number] [facility] Medicare Care Teams Nitrocellulose Maker Relationship Specialty Start Date End Date Samia Burger MD [address] [place] [address] PCP - General Family Medicine 07/13/23
== END 2025-07-14 00:51 | disposition home or self-care (01) ==
LOC: ED 07-14 00:46
PROVIDERS: Emergency Provider Family Medicine; PCP Family Medicine
DX: L76.21 Postprocedural hemorrhage of skin and subcutaneous tissue following a dermatologic procedure (principal)
CPT/HCPCS: 12001; 99283